=== PATIENT | female | born 1955 | race African-American/Black ===

== ENCOUNTER 2016-12-17 02:30 | Inpatient (IN) ==
--- NOTE | 2016-12-17 03:14 | Emergency Department Note ---
Ricardo Nguyen Emily, am scribing for, and in the presence of, Derrick Munoz MD 03: 04. Alexander Nguyen Charles R, MD, personally performed the services described in this documentation, ascribed by Isabel Silva in my presence, and it is both accurate and complete . Arrival - Arrival Chief Complaint: Shortness of Breath Stated Complaint: Pneumonia ED Nursing Triage Note: Patient to triage via EMS from [facility] with RLL PNA. Patient went to [facility] with c/o SOB and right flank pain. Mode of Arrival: Stretcher Limitations: No Limitations Source: Patient - History of Present Illness HPI Narrative: Pt is a 60 y/o female who was transferred from [facility] to ED with RLL PNA. Pt's originally c/o SOB and right flank pain at first facility. Pt has associated sxs of mild rhinorrhea and sore throat but denies fever. Pt had kidney transplant close to 14 years ago at [facility]. PMHx of PE in Jun 2016 but denies filter. Pt reports having low blood and had transfusion recently. She notes having graft in right arm and has had discussion of starting dialysis. Onset (ago): hour(s) Consistency: constant Severity: mild, moderate Severity scale (1-10): 4 Quality: aching, fullness Allergies/Adverse Reactions: Allergies Allergy/AdvReac Type Severity Reaction Status Date / Time codeine Allergy Mild Gastrointestinal Verified 06/27/16 08:59 Upset diphenhydramine Allergy Mild Gastrointestinal Verified 06/27/16 08:59 [From Benadryl] Upset iron Allergy Mild Gastrointestinal Verified 06/27/16 08:59 Upset Home Medications: Home Medications Medication Instructions Recorded Confirmed Type Amlodipine Besylate 10 mg PO DAILY 02/12/15 07/17/16 History Aspirin [Adult Low Dose Aspirin EC] 81 mg PO DAILY 02/12/15 07/17/16 History Tacrolimus [Tacrolimus Cap] 2 mg PO BID 02/12/15 07/17/16 History cloNIDine TAB [Catapres Tab] 0.1 mg PO TID 02/12/15 07/17/16 History hydrALAZINE TAB [Apresoline Tab] 50 mg PO TID 02/12/15 07/17/16 History Carvedilol [Coreg] 6.25 mg PO BID 03/14/16 07/17/16 History Calcitriol [Rocaltrol] 0.25 mcg PO DAILY 05/05/16 07/17/16 History Cetirizine Tab [ZyrTEC Tab] 10 mg PO DAILY 05/05/16 07/17/16 History predniSONE TAB [PredniSONE] 10 mg PO DAILY 05/05/16 07/17/16 History Sodium Bicarb Tab 1,300 mg PO BID 07/12/16 07/17/16 History Acetaminophen Tab [Tylenol Tab] 325 mg PO Q4H PRN #0 tablet 07/27/16 Rx Albuterol/Ipratropium Neb [Duoneb] 3 ml RESP TX RT Q4H PRN #0 07/27/16 Rx Clindamycin Inj [Cleocin Inj] 900 mg IV Q8H 07/27/16 Rx Docusate Sodium Cap [Colace Cap] 100 mg PO BID PRN #0 capsule 07/27/16 Rx Ferrous Gluconate [Fergon] 240 mg PO DAILY tablet 07/27/16 Rx Furosemide Tab [Lasix Tab] 40 mg PO DAILY tablet 07/27/16 Rx Glucagon 1 mg IM PRN PRN #0 vial 07/27/16 Rx Lactulose Liquid [Chronulac] 20 gm PO Q4H PRN #0 07/27/16 Rx Loperamide Cap [Imodium Cap] 2 mg PO TID PRN #0 capsule 07/27/16 Rx Mycophenolate Tab [Myfortic] 180 mg PO BID tablet 07/27/16 Rx Ondansetron Inj [Zofran Inj] 4 mg IV Q4H PRN #0 vial 07/27/16 Rx Pantoprazole Tab [Protonix Tab] 40 mg PO DAILY tablet 07/27/16 Rx Tacrolimus Cap [Prograf Cap] 1 mg PO QAM capsule 07/27/16 Rx Tacrolimus Cap [Prograf Cap] 2 mg PO BEDTIME capsule 07/27/16 Rx cefTRIAXone [Rocephin] 1,000 mg IV Q24H vial 07/27/16 Rx Review of System - Review of System 12 point system: reviewed and no additional remarkable complaints except as stated - Review of System Constitutional: Absent: fever, weakness Head/Ears/Nose/Throat: Present: nasal drainage (mild rhinonrrhea), sore throat. Absent: earache Respiratory: Present: respiratory distress. Absent: cough Cardiovascular: Absent: chest pain Gastrointestinal: Present: abdominal pain (right side). Absent: nausea, vomiting Musculoskeletal: Absent: arm pain Skin: Absent: rash Medical,Surgical,& Family Hx - Social History Smoking Status: Never smoker Frequency of Alcohol Use: None Type of Drug Use: None Functional capacity: independent ambulation Exam Vital Signs: Vital Signs Temperature 98.8 F 12/17/16 02:43 Pulse Rate 96 H 12/17/16 02:43 Respiratory Rate 20 12/17/16 02:43 Blood Pressure 131/72 12/17/16 02:43 O2 Sat by Pulse Oximetry 91 L 12/17/16 02:43 - General General appearance: alert, in no apparent distress - Head Head exam: Present: atraumatic, normocephalic - Eye Eye exam: Present: PERRL, EOMI - ENT ENT exam: Present: mucous membranes moist. Absent: mucous membranes dry - Neck Neck exam: Present: full ROM. Absent: tenderness - Chest Chest inspection: Present: symmetric chest wall rise. Absent: tenderness - Respiratory Respiratory exam: Present: wheezes (bilateral; slightly worse on right than left ). Absent: accessory muscle use, respiratory distress - Cardiovascular Cardiovascular exam: Present: tachycardia, normal heart sounds - Abdominal Exam Abdominal exam: Present: soft, normal bowel sounds, other (scars on right side) . Absent: distention, tenderness - Extremities Exam Extremities exam: Present: full ROM, other (graft on right arm). Absent: tenderness, pedal edema - Neurological Exam Neurological exam: Present: alert, oriented X3, CN II-XII intact. Absent: motor sensory deficit - Psychiatric Psychiatric exam: Present: normal affect, normal mood - Skin Skin exam: Present: warm, dry Course - Consultations Consultation #1: Hospitalist will admit patient Time: 03:13 Results - Labs Labs: All results from previous facility reviewed Disposition Clinical Impression: Renal transplant patient, Failed kidney transplant, Immunocompromise, Pneumonia , Acute dyspnea Case discussed with: patient Disposition: Still a Patient Condition: Stable Time of Disposition: 03:14
[2016-12-17] MEDS ORDERED: ONDANSETRON 4 MG/2 ML VIAL IV PRN (03:29)
[2016-12-17] MEDS ORDERED: ACETAMINOPHEN 325 MG TABLET PO PRN (03:29)
[2016-12-17] MEDS ORDERED: FUROSEMIDE 40 MG/4 ML VIAL IV STA (03:30)
--- NOTE | 2016-12-17 03:55 | Hospitalist History & Physical ---
Assessment and Plan (1) Dyspnea Status: Acute Assessment and plan: Patient with acute respiratory symptoms including dyspnea and runny nose. All this could be just due to URI. I am not sure patient has any any bacterial infection but due to patient is being on immunosuppressant medication will go ahead and start on antibiotics until cultures results I will get pro calcitonin level. The x-ray finding on the chest x-ray did not acute as it was seen in July. This could be also some associated congestive changes. Patient has end- stage renal disease and CHF with a preserved EF. She has received dose of Lasix and need to follow-up the response. Current Visit: Yes (2) Chronic kidney disease, stage V Status: Chronic Assessment and plan: Patient with a chronic transplant rejection and now has CKD stage V and maturing AV access, consult renal Current Visit: Yes (3) Pulmonary embolism Status: Chronic Assessment and plan: Patient was on Coumadin. INR is supratherapeutic will hold Coumadin and repeat INR in the morning Current Visit: Yes (4) Anemia Status: Chronic Assessment and plan: Likely due to chronic disease patient recently has received transfusions . I will check a stool Hemoccult but there is no hematochezia melena. Patient will likely need to prbc transfusion. She is not acutely symptomatic for anemia Current Visit: No Qualifiers: Anemia type: iron deficiency (5) Diabetes mellitus Status: Chronic Assessment and plan: Continue monitor blood sugar seem to be controlled due to advancing renal failure short-acting as needed insulin will be provided Current Visit: No Qualifiers: Diabetes mellitus type: type 2 Chronic kidney disease stage: stage 3 ( moderate) (6) HTN (hypertension) Status: Chronic Assessment and plan: Blood pressure is controlled Current Visit: No (7) Renal transplant recipient Status: Chronic Assessment and plan: Patient is on prednisone and CellCept. Patient was on Prograf in the past which was stopped recently. I will resume home dose of mycophenolate acid 180 mg twice daily and prednisone 10 mg daily on her current medication list. Renal to follow Current Visit: No History of Present Illness Chief complaint: Shortness of breath History of present illness: Ms. Bob is a 61 year old female with history of hypertension diabetes mellitus pulmonary embolism CKD with a history of renal transplant about 14 years ago now has chronic rejection. Patient came with a transfer from [facility] where she presented with the shortness of breath she has shortness of breath started a few hours prior to ER visit along with a cough with clear sputum and runny nose and no fever she was noted to have abnormal chest x-ray with suspected right lower lobe pneumonia. There is no nausea vomiting diarrhea urinary symptoms abdominal pain reported on further inquiry it was noted that patient was admitted here in July 2016 with the suspected pneumonia and was treated with antibiotics. Later on she had a visit at the [facility] and dear she was noted to have a pulmonary embolism and started on Coumadin. Her WBC count was 5.9 hemoglobin 7.0 hematocrit 21.8 and platelet 237 d-dimer 327 PT 41.0 INR 3.73 BUN 19 creatinine 7.2 proBNP [id number]. EKG was sinus rhythm without any gross ST-T changes troponin level that is not available but the CPK was 109. She also had blood cultures performed at the [facility] and given dose of Rocephin. For failing transplant she has right upper arm AV access placed and is waiting for maturation. In the ER here patient was seen by Dr. Munoz and presented to me for admission. She has received a dose of 80 mg Lasix at our ER Home Medications Medication Instructions Recorded Confirmed Type Amlodipine Besylate 10 mg PO DAILY 02/12/15 07/17/16 History Aspirin [Adult Low Dose Aspirin EC] 81 mg PO DAILY 02/12/15 07/17/16 History Tacrolimus [Tacrolimus Cap] 2 mg PO BID 02/12/15 07/17/16 History cloNIDine TAB [Catapres Tab] 0.1 mg PO TID 02/12/15 07/17/16 History hydrALAZINE TAB [Apresoline Tab] 50 mg PO TID 02/12/15 07/17/16 History Carvedilol [Coreg] 6.25 mg PO BID 03/14/16 07/17/16 History Calcitriol [Rocaltrol] 0.25 mcg PO DAILY 05/05/16 07/17/16 History Cetirizine Tab [ZyrTEC Tab] 10 mg PO DAILY 05/05/16 07/17/16 History predniSONE TAB [PredniSONE] 10 mg PO DAILY 05/05/16 07/17/16 History Sodium Bicarb Tab 1,300 mg PO BID 07/12/16 07/17/16 History Acetaminophen Tab [Tylenol Tab] 325 mg PO Q4H PRN #0 tablet 07/27/16 Rx Albuterol/Ipratropium Neb [Duoneb] 3 ml RESP TX RT Q4H PRN #0 07/27/16 Rx Clindamycin Inj [Cleocin Inj] 900 mg IV Q8H 07/27/16 Rx Docusate Sodium Cap [Colace Cap] 100 mg PO BID PRN #0 capsule 07/27/16 Rx Ferrous Gluconate [Fergon] 240 mg PO DAILY tablet 07/27/16 Rx Furosemide Tab [Lasix Tab] 40 mg PO DAILY tablet 07/27/16 Rx Glucagon 1 mg IM PRN PRN #0 vial 07/27/16 Rx Lactulose Liquid [Chronulac] 20 gm PO Q4H PRN #0 07/27/16 Rx Loperamide Cap [Imodium Cap] 2 mg PO TID PRN #0 capsule 07/27/16 Rx Mycophenolate Tab [Myfortic] 180 mg PO BID tablet 07/27/16 Rx Ondansetron Inj [Zofran Inj] 4 mg IV Q4H PRN #0 vial 07/27/16 Rx Pantoprazole Tab [Protonix Tab] 40 mg PO DAILY tablet 07/27/16 Rx Tacrolimus Cap [Prograf Cap] 1 mg PO QAM capsule 07/27/16 Rx Tacrolimus Cap [Prograf Cap] 2 mg PO BEDTIME capsule 07/27/16 Rx cefTRIAXone [Rocephin] 1,000 mg IV Q24H vial 07/27/16 Rx Allergies Allergy/AdvReac Type Severity Reaction Status Date / Time codeine Allergy Mild Gastrointestinal Verified 06/27/16 08:59 Upset diphenhydramine Allergy Mild Gastrointestinal Verified 06/27/16 08:59 [From Benadryl] Upset iron Allergy Mild Gastrointestinal Verified 06/27/16 08:59 Upset Medical,Surgical,& Family Hx - Medical History Cardio: History of: Cardiac Dysrhythmia, Hypertension, Cardiovascular Problems Neurology: No history of: Seizures Endocrine: History of: Diabetes Mellitus (IDDM) (insulin pump continous 2.75 humalog.), Diabetes Mellitus (NIDDM) Renal: History of: Renal Failure, Renal Problems (KIDNEY TRANSPLANT 09/2002) Comment Only: Dialysis (past dialysis) Genitourinary: History of: Kidney Stones Gastrointestinal: History of: GERD, GI Problems (peptic ulcers) Hematology: History of: Anemia - Surgical History Thoracic Surgeries: Surgical HX of;: Kidney (Renal Surgery) (transplant 2002) HEENT Surgeries: Surgical HX of: Thyroid Surgery (partial thyroidectomy) Abdominal Surgeries: Surgical HX of: Colonoscopy (2014) Reproductive Surgeries: Surgical HX of;: Breast Surgery (lt breast cyst removed) , Hysterectomy (partial) - Family History Family History: Reports;: Family Cancer (2 sisters with CA, brother with ESRD), Family Heart Disease, Family Hypertension Denies;: Family Anesthesia Reaction, Family Diabetes, Family Psychiatric Problems, Family Stroke - Social History Smoking Status: Never smoker Frequency of Alcohol Use: None Type of Drug Use: None 12 point system: reviewed and no additional remarkable complaints except as stated (Mentioned in HPI) Exam - Constitutional Vitals: Period Temp Pulse Resp BP Sys/Buchanan Pulse Ox Last 24 Hr 98.8 F 96 20 131/72 91 General appearance: no acute distress - Head Head exam: Present: normal inspection, normocephalic, atraumatic - Eye Eye exam: Present: EOMI. Absent: conjunctival injection Pupils: Present: ANKUR, normal accommodation - Neck Neck exam: Present: normal inspection. Absent: other - Respiratory Respiratory exam: Present: rales (Decreased air entry on right-sided posteriorly on auscultation with BILATERALLY at the bases but more on the right side). Absent: accessory muscle use - Cardiovascular Cardiovascular exam: Present: regular rate and rhythm. Absent: bradycardia, tachycardia - GI/Abdominal GI/Abdominal exam: Present: normal bowel sounds, soft. Absent: distended, tenderness - Extremities Exam Extremities exam: Present: normal inspection, other (Right upper extremity AV access with thrill). Absent: edema - Back Exam Back exam: Present: normal inspection - Neurological Exam Neurological exam: Present: alert, oriented X3 - Psychiatric Psychiatric exam: Present: normal affect, normal mood Quality Measures - VTE Contraindication to Pharmacological VTE Prophylaxis: Already on Theraputic Agent , No Prophylaxis Needed
[2016-12-17] MEDS ORDERED: FUROSEMIDE 40 MG/4 ML VIAL ONE (04:01)
[2016-12-17] MEDS ORDERED: DEXTROSE 50% 25 GM/50 ML SYRINGE IV PRN (04:08)
[2016-12-17] MEDS ORDERED: GLUCAGON 1 MG VIAL IM PRN (04:08)
[2016-12-17] MEDS ORDERED: SODIUM CHLORIDE 0.9% 250 ML IV PRN (04:29)
[2016-12-17] MEDS ORDERED: FUROSEMIDE 100 MG/10 ML VIAL IV ONE (04:34)
[2016-12-17] MEDS: cefTRIAXone 1,000 MG in SODIUM CHLORIDE 0.9% 100 ML IV SCH (06:18)
[2016-12-17] MEDS: AZITHROMYCIN INJ 500 MG in SODIUM CHLORIDE 0.9% 250 ML IV SCH (06:39)
[2016-12-17 07:21] LABS: Alanine Aminotransferase 17 U/L (13-56); Albumin 3.7 G/DL (3.4-5.0); Alkaline Phosphatase 135 U/L (45-117); Aspartate Amino Transferase 14 U/L (0-37); Bilirubin,Total < 0.39 MG/DL (0.2-1.0); Blood Urea Nitrogen 98 MG/DL (7-18); Calcium 6.2 MG/DL (8.5-10.1); Glucose 113 MG/DL (74-106); Osmolality,Calculated 310.4 MOS/KG (273-304); Potassium 4.1 MMOL/L (3.5-5.1); Sodium 140 MMOL/L (136-145); Total Protein 6.6 G/DL (6.4-8.3)
[2016-12-17 07:32] LABS: Folate 17.9 NG/ML (5.4-24.0); Vitamin B12 171 PG/ML (211-911)
[2016-12-17] MEDS: INSULIN LISPRO 100 UNIT/ML SUBCUT SCH ×4 (07:33→22:05)
[2016-12-17 07:39] LABS: Basophils % 0.2 % (0.0-0.8); Hematocrit 20.8 VOL% (35.7-47.0); Immature Granulocytes % 1.1 %; Immature Granulocytes Absolute 0.06 #; Lymphocytes # 0.4 10*3/uL (1.4-4.0); Lymphocytes % 6.7 % (21.3-54.2); Mean Corpuscular HGB Conc 32.2 GM/DL (32-36); Mean Corpuscular Hemoglobin 24 PG (27-34); Monocytes # 0.4 10*3/uL (0.11-0.8); Monocytes % 7.5 % (1.7-12.7); Neutrophils # 4.6 10*3/uL (1.4-7.4); Neutrophils % 84.5 % (38.7-73.9); Platelet Count 171 T/CUMM (130-400); Red Blood Count 2.81 MC/CUMM (3.8-5.5); Red Cell Distribution Width 14.3 % (9.3-17.3); White Blood Count 5.5 T/CUMM (4-12)
[2016-12-17 07:44] LABS: Hemoglobin 6.7 GM/DL (12.0-16.0)
[2016-12-17 07:52] LABS: INR 3.1
[2016-12-17 08:02] LABS: PT Patient Result 35.5 SECS; Partial Thromboplastin Time 65.1 SECS (0-40)
[2016-12-17 08:32] LABS: Hypochromasia 1+; Lymphocytes 11 % (20-55); Microcytosis 1+; Ovalocytes Slight; Platelet Estimate Normal; Segmented Neutrophils 81 % (50-85); Total Cells Counted 100
[2016-12-17 08:52] LABS: Sedimentation Rate-Westergren 42 MM/HR (0-30)
[2016-12-17] MEDS: PANTOPRAZOLE 40 MG TABLET PO SCH (09:12)
[2016-12-17] MEDS: amLODIPine 10 MG TABLET PO SCH (09:12)
[2016-12-17] MEDS: CARVEDILOL 12.5 MG TABLET PO SCH ×2 (09:12→21:51)
[2016-12-17] MEDS: predniSONE 10 MG TABLET PO SCH (09:12)
[2016-12-17] MEDS: CALCITRIOL 0.25 MCG CAPSULE PO SCH (09:13)
[2016-12-17] MEDS: MYCOPHENOLATE 180 MG TABLET PO SCH ×2 (09:17→21:51)
--- NOTE | 2016-12-17 10:31 | Ultrasound Report ---
US venous doppler UE RT Indication: Right upper extremity swelling and pain. Breast hemodialysis graft. Comparison: None. Technique: Using a transcutaneous probe, grayscale, color Doppler, and spectral Doppler images of the right upper extremity venous structures were captured and stored. Images both with compression and no compression were obtained where possible. The right internal jugular vein and subclavian vein were additionally interrogated. Findings: There is no evidence of venous thrombus within the interrogated right upper extremity or neck. The interrogated venous segments demonstrate compression, color flow, and phasic spectral flow. The hemodialysis graft is patent. Impression: 1. No evidence of deep venous thrombosis within the right upper extremity. 12/17/2016 10:29 AM PROCEDURE INTERPRETED AT [facility] DEPARTMENT OF RADIOLOGY Final Report Signed by: Dr. Derrell Peter
--- NOTE | 2016-12-17 14:00 | Nephrology Consult Note ---
History of Present Illness Chief complaint: CRF History of present illness: Ms. Bob is a 61 year old female with advanced chronic renal failure. She has chronic rejection of a transplant she received in 2002. She has had a right arm access placed for anticipated dialysis. She presented with shortness of breath which is primarily ABDALLA. She denies chest pain. She has had a nonproductive cough. Chest x-ray done at [facility] showed right lower lobe infiltrate. Home Medications Medication Instructions Recorded Confirmed Type Amlodipine Besylate 10 mg PO DAILY 02/12/15 12/17/16 History Carvedilol [Coreg] 25 mg PO BID 03/14/16 12/17/16 History Calcitriol [Rocaltrol] 0.25 mcg PO DAILY 05/05/16 12/17/16 History Cetirizine Tab [ZyrTEC Tab] 10 mg PO DAILY 05/05/16 12/17/16 History predniSONE TAB [PredniSONE] 10 mg PO DAILY 05/05/16 12/17/16 History Sodium Bicarb Tab 1,300 mg PO BID 07/12/16 12/17/16 History Acetaminophen Tab [Tylenol Tab] 325 mg PO Q4H PRN #0 tablet 07/27/16 12/17/16 Rx Docusate Sodium Cap [Colace Cap] 100 mg PO BID PRN #0 capsule 07/27/16 12/17/16 Rx Lactulose Liquid [Chronulac] 20 gm PO Q4H PRN #0 07/27/16 12/17/16 Rx Loperamide Cap [Imodium Cap] 2 mg PO TID PRN #0 capsule 07/27/16 12/17/16 Rx Mycophenolate Tab [Myfortic] 180 mg PO BID tablet 07/27/16 12/17/16 Rx Pantoprazole Tab [Protonix Tab] 40 mg PO DAILY tablet 07/27/16 12/17/16 Rx Furosemide Tab [Lasix Tab] 40 mg PO BID 12/17/16 12/17/16 History HYDROcodone/ACETAMIN 7.5-325 1 tablet PO Q4H PRN 12/17/16 12/17/16 History [Lyons 7.5-325] Ranitidine Tab [Zantac Tab] 150 mg PO DAILY 12/17/16 12/17/16 History Warfarin [Coumadin] 5 mg PO DAILY 12/17/16 12/17/16 History hydrALAZINE TAB [Apresoline Tab] 50 mg PO TID 12/17/16 12/17/16 History Allergies Allergy/AdvReac Type Severity Reaction Status Date / Time codeine Allergy Mild Gastrointestinal Verified 06/27/16 08:59 Upset diphenhydramine Allergy Mild Gastrointestinal Verified 06/27/16 08:59 [From Benadryl] Upset iron Allergy Mild Gastrointestinal Verified 06/27/16 08:59 Upset Medical,Surgical,& Family Hx - Medical History Cardio: History of: Cardiac Dysrhythmia, Hypertension, Cardiovascular Problems Neurology: No history of: Seizures Endocrine: History of: Diabetes Mellitus (IDDM) (insulin pump continous 2.75 humalog.), Diabetes Mellitus (NIDDM) Respiratory: History of: Respiratory Problems (flu vac- yes; pneu vac- yes) Renal: History of: Renal Failure, Renal Problems (KIDNEY TRANSPLANT 09/2002) Comment Only: Dialysis (past dialysis) Genitourinary: History of: Kidney Stones Gastrointestinal: History of: GERD, GI Problems (peptic ulcers) Hematology: History of: Anemia - Surgical History Thoracic Surgeries: Surgical HX of;: Kidney (Renal Surgery) (transplant 2002) HEENT Surgeries: Surgical HX of: Thyroid Surgery (partial thyroidectomy) Abdominal Surgeries: Surgical HX of: Colonoscopy (2014) Reproductive Surgeries: Surgical HX of;: Breast Surgery (lt breast cyst removed) , Hysterectomy (partial) - Family History Family History: Reports;: Family Cancer (2 sisters with CA, brother with ESRD), Family Heart Disease, Family Hypertension Denies;: Family Anesthesia Reaction, Family Diabetes, Family Psychiatric Problems, Family Stroke - Social History Smoking Status: Never smoker Frequency of Alcohol Use: None Type of Drug Use: None Review of Systems 12 point system: reviewed and no additional remarkable complaints except as stated Exam - Vital Signs Vital signs: Period Temp Pulse Resp BP Sys/Buchanan Pulse Ox Last 24 Hr 97.1 F-98.8 F 88-96 17-20 104-131/57-72 91-100 Exam: Gen.: Alert and oriented x3. ENT: Pupils equal round reactive to light. EOMs intact. Mucous membranes moist. Neck: Supple. No JVD or bruit. Cardiovascular: Regular rate and rhythm. No murmur rub or gallop Lungs: Clear left. Decreased breath sounds right base Abdomen: Soft. Nontender. Positive bowel sounds. No organomegaly Extremities: No edema Results - Labs CBC & BMP: 12/17/16 07:18 12/17/16 06:26 Assessment and Plan (1) Kidney transplant failure Status: Acute Assessment and plan: 61-year-old woman with: * Pneumonia. Right lower lobe. Empiric antibiotics started * Renal transplant. Chronic rejection * CRF stage V * Anemia. She is to be transfused * Diabetes mellitus Current Visit: Yes (2) Dyspnea Status: Acute Current Visit: Yes (3) Pneumonia Status: Acute Current Visit: Yes (4) Chronic kidney disease, stage V Status: Chronic Current Visit: Yes (5) Anemia Status: Chronic Current Visit: No Qualifiers: Anemia type: iron deficiency
[2016-12-17 18:56] LABS: Hematocrit 26.7 VOL% (35.7-47.0)
[2016-12-18] MEDS: cefTRIAXone 1,000 MG in SODIUM CHLORIDE 0.9% 100 ML IV SCH (04:01)
[2016-12-18] MEDS: AZITHROMYCIN INJ 500 MG in SODIUM CHLORIDE 0.9% 250 ML IV SCH (05:03)
[2016-12-18] MEDS: INSULIN LISPRO 100 UNIT/ML SUBCUT SCH ×4 (09:02→21:24)
[2016-12-18] MEDS: amLODIPine 10 MG TABLET PO SCH (09:18)
[2016-12-18] MEDS: predniSONE 10 MG TABLET PO SCH (09:19)
[2016-12-18] MEDS: CARVEDILOL 12.5 MG TABLET PO SCH ×2 (09:19→21:24)
[2016-12-18] MEDS: CALCITRIOL 0.25 MCG CAPSULE PO SCH (09:19)
[2016-12-18] MEDS: MYCOPHENOLATE 180 MG TABLET PO SCH ×2 (09:19→21:24)
[2016-12-18] MEDS: PANTOPRAZOLE 40 MG TABLET PO SCH (09:19)
[2016-12-18 09:21] LABS: Hemoglobin A1 (Alkaline) 97.7 % (96.5-98.5); Hemoglobin A2 (Alkaline) 2.3 % (1.5-3.5)
--- NOTE | 2016-12-18 09:23 | Hospitalist Progress Note ---
Assessment and Plan (1) Dyspnea Status: Acute Assessment and plan: This is slowly improving . This is most likely multifactorial- CHF vs PE vs CKD vs pneumonia. Chest x-ray done at [facility] showed right lower lobe infiltrate. Plan Will give another doses of Lasix Continue with IV antibiotics Echo cardiac enzymes Continue with anticoagulation Follow Nephrology's recommendations Repeat CXR Nebs treatment BNP Current Visit: Yes (2) Chronic kidney disease, stage V Status: Chronic Assessment and plan: Patient with a chronic transplant rejection and now has CKD stage V and maturing AV access. Nephrology is following. Current Visit: Yes (3) Pulmonary embolism Status: Chronic Assessment and plan: continue anticogulation INR monitoring Doppler of the legs Current Visit: Yes (4) Anemia Status: Chronic Assessment and plan: continue to follow. This is most likely due to underlying CKD Current Visit: No Qualifiers: Anemia type: iron deficiency (5) Renal transplant recipient Status: Chronic Assessment and plan: continue with Cellcept and Prednisone Will get Cellcept level Current Visit: No (6) Diabetes mellitus Status: Chronic Assessment and plan: stable on current regime, will get hbA1c level Current Visit: No Qualifiers: Diabetes mellitus type: type 2 Chronic kidney disease stage: stage 3 ( moderate) (7) HTN (hypertension) Status: Chronic Assessment and plan: stable on meds. Current Visit: No (8) Pneumonia Status: Acute Assessment and plan: on IV antibiotics Follow cultures Repeat CXR Current Visit: Yes Hospitalist: Subjective Interval history: Patient seen siting up on a chair comfortably on [place] oxygen. Doppler USS of her right arm was negative for DVT. Exam - Constitutional Vitals: Period Temp Pulse Resp BP Sys/Buchanan Pulse Ox Last 24 Hr 97.1 F-98.4 F 66-97 18-24 104-156/58-73 92-100 General appearance: no acute distress, other (sitting up on [place] oxygen) - Head Head exam: Present: normal inspection - Respiratory Respiratory exam: Present: decreased breath sounds - Cardiovascular Cardiovascular exam: Present: regular rate and rhythm - GI/Abdominal GI/Abdominal exam: Present: normal bowel sounds - Extremities Exam Extremities exam: Present: other (right arm and breast swelling) - Neurological Exam Neurological exam: Present: alert, oriented X3 Results - Labs CBC & BMP: 12/17/16 18:50 12/17/16 06:26 Lab Results: I have reviewed the past 24 hour labs Quality Measures - VTE Contraindication to Pharmacological VTE Prophylaxis: Already on Theraputic Agent , No Prophylaxis Needed - Stroke Symptom Onset Unknown: No
[2016-12-18] MEDS ORDERED: ALBUTEROL/IPRATROPIUM 3 ML NEB RESP TX PRN (09:29)
[2016-12-18 10:42] LABS: Troponin I Only < 0.015 NG/ML (0.00-0.045)
--- NOTE | 2016-12-18 10:54 | Nephrology Progress Note ---
Nephrology - PN: Subj Interval history: Ms. Bob is seen in follow-up of her renal failure. She has a failing kidney transplant and the creatinine is now 6.9. She went to the [facility] emergency room because of shortness of breath mostly with exertion. She was found to have a hematocrit of 20.8% and has been transfused with a hematocrit now 26.7%. She says she feels better. There is also report of an infiltrate on chest x-ray but we do not have chest x-ray available from the referring hospital. One has been ordered for today. 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 She underwent intervention for this about 1 month ago with some improvement in swelling but did his never improved beyond its current level. On exam her chest reveals decreased breath sounds on in the right chest and clear left lung. She has no edema of the legs but does have edema of the right arm and right breast. There is a patent dialysis access the right upper arm. Impression #1 anemia due to chronic disease #2 failing kidney transplant with stage V chronic kidney disease and a creatinine of 6.9. 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 This is causing swelling of her right breast as well. Plan: Chest x-ray #2 we will asked to see her regarding access issues. I do not think she is in need of dialysis immediately. Vascular access is going to be a problem and from the previous interventional radiology report stenting of the central venous stenosis is going to be a last resort. Exam (PN)-Nephrology - Vital Signs Vital signs: Period Temp Pulse Resp BP Sys/Buchanan Pulse Ox Last 24 Hr 97.1 F-98.4 F 66-97 18-24 104-156/58-73 92-100 - Lab 12/17/16 18:50 12/17/16 06:26 Most recent lab results Calcium 6.2 MG/DL (8.5-10.1) L 12/17/16 06:26
--- NOTE | 2016-12-18 13:32 | Ultrasound Report ---
History: Dyspnea Date: 12/18/2016 Study: Bilateral lower extremity color-flow venous top study Comparison exam: No previous similar study currently available Color Doppler, wave form analysis, and compression analysis of the deep veins of both lower extremities from the common femoral vein level through the popliteal vein level shows that the veins are readily compressible. There is no abnormal intraluminal material to suggest thrombus. Waveform analysis is unremarkable. Ultrasound images were captured and archived Impression: Normal bilateral lower extremity color flow venous Doppler study. No evidence of acute DVT PROCEDURE INTERPRETED AT [facility] DEPARTMENT OF RADIOLOGY Final Report Signed by: Dr. Dianne Alvarado
--- NOTE | 2016-12-18 14:02 | XRay Report ---
XR chest 2V Indication: SOB Comparison: Chest x-ray dated December 16, 2016 Technique: Frontal and lateral views of the chest. Findings: Continued moderate cardiomegaly. Mildly improved bilateral infrahilar consolidation with some residual remaining. Continued small bilateral pleural effusions, right greater than left. Visualized osseous and surrounding soft tissue structures appear grossly unchanged.. IMPRESSION: As above. PROCEDURE INTERPRETED AT [facility] DEPARTMENT OF RADIOLOGY Final Report Signed by: Dr Fidel Marcano
--- NOTE | 2016-12-18 14:51 | General Surgery Consult Note ---
Assessment and Plan - Time spent with patient Time spent with patient: Greater than 30 minutes (1) Acute on chronic renal failure Status: Chronic Assessment and plan: 61-year-old -[place] female with acute on chronic renal failure and failed kidney transplant admitted with pneumonia. Patient has chronic swelling of the right arm and breast due to a central venous stenosis draining the right upper arm AV graft. Patient had undergone intervention by Dr. Peterson a few weeks ago with some improvement in the swelling. Dr. Garrett has been consulted to evaluate her access. Patient continues to have some chronic swelling of the right arm and breast with good distal pulses, good thrill and bruit, and normal sensation in her hand and fingers. Dr. Garrett will see and examined patient and further recommendations to follow. Current Visit: No (2) Renal transplant recipient Status: Chronic Current Visit: No (3) Anemia Status: Chronic Current Visit: No Qualifiers: Anemia type: iron deficiency (4) HTN (hypertension) Status: Chronic Current Visit: No (5) CKD (chronic kidney disease) stage 4, GFR 15-29 ml/min Status: Chronic Current Visit: No (6) Arm swelling Status: Acute Current Visit: No (7) Right lower lobe pneumonia Status: Acute Current Visit: No History of Present Illness Chief complaint: Right arm swelling History of present illness: Ms. Bob is a 61 year old -[place] female with history of failed renal transplant with chronic kidney disease, hypertension, diabetes, and pulmonary embolism on Coumadin admitted by the hospitalist on 12/17/2016 with shortness of breath due to pneumonia. She also was found to have an hematocrit of 20.8% has been transfused. She has chronic swelling of the right arm and breast due to central venous stenosis draining the right upper arm AV graft. Dr. Garrett placed a right upper arm loop graft between the brachial artery and the basilic vein on 06/27/2016. Patient has had some right upper extremity swelling since then but it is stable and Dr. Garrett recommended elevation of the right arm. Dr. Peterson saw the patient on 11/27/2016 where he performed a right upper extremity AV fistulogram. He found that the graft was widely patent. He performed isolation of the intended axillary outflow vein from a large and well-developed collateral outflow vein at the venous anastomosis using a stent graft. 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 Patient is not in need of dialysis immediately per Dr. Parr. He is requested Dr. Garrett to look at the graft and discuss access options. Upon exam patient is resting comfortably in bed and her only complaints are of right upper extremity and right breast swelling. Her incisions have healed well and patient does have a thrill and a bruit in that graft. She does have what appears to be chronic edema of the right upper extremity and her lateral right breast. She does have good distal pulses and normal sensation in her hand and fingers. Home Medications Medication Instructions Recorded Confirmed Type Amlodipine Besylate 10 mg PO DAILY 02/12/15 12/17/16 History Carvedilol [Coreg] 25 mg PO BID 03/14/16 12/17/16 History Calcitriol [Rocaltrol] 0.25 mcg PO DAILY 05/05/16 12/17/16 History Cetirizine Tab [ZyrTEC Tab] 10 mg PO DAILY 05/05/16 12/17/16 History predniSONE TAB [PredniSONE] 10 mg PO DAILY 05/05/16 12/17/16 History Sodium Bicarb Tab 1,300 mg PO BID 07/12/16 12/17/16 History Acetaminophen Tab [Tylenol Tab] 325 mg PO Q4H PRN #0 tablet 07/27/16 12/17/16 Rx Docusate Sodium Cap [Colace Cap] 100 mg PO BID PRN #0 capsule 07/27/16 12/17/16 Rx Lactulose Liquid [Chronulac] 20 gm PO Q4H PRN #0 07/27/16 12/17/16 Rx Loperamide Cap [Imodium Cap] 2 mg PO TID PRN #0 capsule 07/27/16 12/17/16 Rx Mycophenolate Tab [Myfortic] 180 mg PO BID tablet 07/27/16 12/17/16 Rx Pantoprazole Tab [Protonix Tab] 40 mg PO DAILY tablet 07/27/16 12/17/16 Rx Furosemide Tab [Lasix Tab] 40 mg PO BID 12/17/16 12/17/16 History HYDROcodone/ACETAMIN 7.5-325 1 tablet PO Q4H PRN 12/17/16 12/17/16 History [Koppel 7.5-325] Ranitidine Tab [Zantac Tab] 150 mg PO DAILY 12/17/16 12/17/16 History Warfarin [Coumadin] 5 mg PO DAILY 12/17/16 12/17/16 History hydrALAZINE TAB [Apresoline Tab] 50 mg PO TID 12/17/16 12/17/16 History Allergies Allergy/AdvReac Type Severity Reaction Status Date / Time codeine Allergy Mild Gastrointestinal Verified 06/27/16 08:59 Upset diphenhydramine Allergy Mild Gastrointestinal Verified 06/27/16 08:59 [From Benadryl] Upset iron Allergy Mild Gastrointestinal Verified 06/27/16 08:59 Upset Medical,Surgical,& Family Hx - Medical History Cardio: History of: Cardiac Dysrhythmia, Hypertension, Cardiovascular Problems Neurology: No history of: Seizures Endocrine: History of: Diabetes Mellitus (IDDM) (insulin pump continous 2.75 humalog.), Diabetes Mellitus (NIDDM) Respiratory: History of: Respiratory Problems (flu vac- yes; pneu vac- yes) Renal: History of: Renal Failure, Renal Problems (KIDNEY TRANSPLANT 09/2002) Comment Only: Dialysis (past dialysis) Genitourinary: History of: Kidney Stones Gastrointestinal: History of: GERD, GI Problems (peptic ulcers) Hematology: History of: Anemia - Surgical History Thoracic Surgeries: Surgical HX of;: Kidney (Renal Surgery) (transplant 2002) HEENT Surgeries: Surgical HX of: Thyroid Surgery (partial thyroidectomy) Abdominal Surgeries: Surgical HX of: Colonoscopy (2014) Reproductive Surgeries: Surgical HX of;: Breast Surgery (lt breast cyst removed) , Hysterectomy (partial) - Family History Family History: Reports;: Family Cancer (2 sisters with CA, brother with ESRD), Family Heart Disease, Family Hypertension Denies;: Family Anesthesia Reaction, Family Diabetes, Family Psychiatric Problems, Family Stroke - Social History Smoking Status: Never smoker Frequency of Alcohol Use: None Type of Drug Use: None - Constitutional Constitutional: Present: as per HPI Exam - Constitutional Vitals: Period Temp Pulse Resp BP Sys/Buchanan Pulse Ox Last 24 Hr 97.1 F-98.4 F 66-97 18-24 102-156/58-73 91-100 Exam: 61-year-old -[place] female, no acute distress, alert and oriented Chest clear CV regular rate and rhythm Abdomen soft and nontender Extremities right upper extremity with some chronic edema with AV graft with good thrill and bruit, good distal pulses, normal sensation Quality Measures - VTE Contraindication to Pharmacological VTE Prophylaxis: Already on Theraputic Agent , No Prophylaxis Needed - Stroke Symptom Onset Unknown: No Results - Labs CBC & BMP: 12/17/16 18:50 12/17/16 06:26 Lab Results: I have reviewed the past 24 hour labs
--- NOTE | 2016-12-18 16:20 | Mammography Report ---
History: Right breast swelling Bilateral full-field digital screening mammogram with CAD Date:12/18/2016 12:00 AM Comparison: Reported outside mammograms are not available for comparison Full-field digital screening bilateral mammography is performed. CAD is utilized. The breasts are imaged in the CC and MLO projections. The breast tissue is heterogeneously dense. There is no discrete mass or malignant appearing calcification. There is no axillary lymphadenopathy. There is some diffuse edema throughout the right breast in this patient with a right upper extremity dialysis AV graft with associated collateral veins seen on recent vascular studies. Impression: Benign findings. Diffuse edema of the right breast which can be attributed to the patient's AV dialysis graft issues. No convincing evidence to suggest malignancy. When the patient's outside mammograms are available for comparison, we will be happy to compare those exams to this study and dictate an addendum. Patient information is entered into a reminder system with target due date for the next mammogram BI-RADS category: Benign findings. BI-RADS 2 PROCEDURE INTERPRETED AT [facility] DEPARTMENT OF RADIOLOGY Final Report Signed by: Dr. Dianne Alvarado
[2016-12-18] MEDS: FUROSEMIDE 40 MG/4 ML VIAL IV SCH (17:05)
[2016-12-19 05:04] LABS: Basophils % 0.3 % (0.0-0.8); Eosinophils % 0.1 % (0.00-10.9); Hematocrit 24.8 VOL% (35.7-47.0); Immature Granulocytes Absolute 0.07 #; Lymphocytes # 0.4 10*3/uL (1.4-4.0); Lymphocytes % 6.1 % (21.3-54.2); Mean Corpuscular HGB Conc 32.3 GM/DL (32-36); Mean Corpuscular Hemoglobin 25 PG (27-34); Monocytes # 0.4 10*3/uL (0.11-0.8); Monocytes % 6.4 % (1.7-12.7); Neutrophils # 5.9 10*3/uL (1.4-7.4); Neutrophils % 86.1 % (38.7-73.9); Platelet Count 178 T/CUMM (130-400); Red Blood Count 3.22 MC/CUMM (3.8-5.5); Red Cell Distribution Width 15.8 % (9.3-17.3); White Blood Count 6.8 T/CUMM (4-12)
[2016-12-19 05:08] LABS: INR 2.2
[2016-12-19 05:18] LABS: Calcium 6.3 MG/DL (8.5-10.1); Magnesium 1.9 MG/DL (1.8-2.4); Potassium 4.5 MMOL/L (3.5-5.1)
[2016-12-19] MEDS: cefTRIAXone 1,000 MG in SODIUM CHLORIDE 0.9% 100 ML IV SCH (05:28)
[2016-12-19 05:35] LABS: PT Patient Result 24.8 SECS
[2016-12-19] MEDS: AZITHROMYCIN INJ 500 MG in SODIUM CHLORIDE 0.9% 250 ML IV SCH (06:20)
--- NOTE | 2016-12-19 07:01 | ECHO Report ---
Stefanie Bob 12/18/2016 Exam Date: 13:44 Referring Physician: kathrin Bob Technologist: MORENA ANGUIANO Age: 61 Ht (in): 61 Wt (lb): 124 FExam Location: [facility] Gender: Echo [id number]: Dyspnea, unspecified, Chronic kidneyIndications:disease, stage 4 (severe), Essential (primary) hypertension, Anemia BP: 156 / 71 HR: 88 SinusRhythm: FairTechnical Quality: IMPRESSIONS Normal LV systolic function, ejection fraction 65%. Grade 2/4 diastolic dysfunction. Mild to moderate left atrial enlargement. Moderate to severe mitral regurgitation. Moderate to severe tricuspid regurgitation. Mild pulmonary hypertension, pulmonary artery pressure estimated at 54 mmHg. MEASUREMENTS (Male / Female) Normal Values 2D ECHO LV Diastolic Diameter PLAX 4.6 cm 4.2 - 5.9 / 3.9 - 5.3 cm LV Systolic Diameter PLAX 2.1 cm LV Fractional Shortening PLAX 54.8 % IVS Diastolic Thickness 0.8 cm 0.6 - 1.0 / 0.6 - 0.9 cm LVPW Diastolic Thickness 0.9 cm 0.6 - 1.0 / 0.6 - 0.9 cm RV Internal Dim ED PLAX 2.9 cm Aortic Root Diameter 2.8 cm LA Systolic Diameter LX 4.3 cm 3.0 - 4.0 / 2.7 - 3.8 cm DOPPLER TR Peak Velocity 330.0 cm/s TR Peak Gradient 43.6 mmHg FINDINGS Left Ventricle Normal left ventricular cavity size. Mild left ventricular hypertrophy. Left ventricular ejection fraction is estimated at 65 %. Right Ventricle The right ventricle is normal in size and function. Right Atrium The right atrium is normal in size. Left Atrium The left atrium is mildly to moderately enlarged. Mitral Valve Mildly thickened mitral valve. Mild mitral annular calcification. Moderate to severe mitral valve regurgitation. Aortic Valve Aortic valve sclerosis without stenosis or regurgitation. Tricuspid Valve Morphologically normal tricuspid valve. [id number] tricuspid valve regurgitation. Tricuspid regurgitation velocities suggest a PAP of 54 mmHg. Pulmonic Valve Morphologically normal pulmonic valve without significant stenosis. There is no pulmonic regurgitation. Pericardium Normal pericardium without effusion. Aorta Normal ascending aorta dimension. Ludy Butler MD (Electronically Signed) 19 December 2016 Final Date: 07:00
[2016-12-19] MEDS: FUROSEMIDE 40 MG/4 ML VIAL IV SCH ×2 (08:09→15:45)
[2016-12-19] MEDS: CALCITRIOL 0.25 MCG CAPSULE PO SCH (08:10)
[2016-12-19] MEDS: MYCOPHENOLATE 180 MG TABLET PO SCH ×2 (08:10→20:24)
[2016-12-19] MEDS: predniSONE 10 MG TABLET PO SCH (08:10)
[2016-12-19] MEDS: amLODIPine 10 MG TABLET PO SCH (08:10)
[2016-12-19] MEDS: CARVEDILOL 12.5 MG TABLET PO SCH ×2 (08:10→20:24)
[2016-12-19] MEDS: PANTOPRAZOLE 40 MG TABLET PO SCH (08:10)
[2016-12-19] MEDS: INSULIN LISPRO 100 UNIT/ML SUBCUT SCH ×3 (08:11→20:24)
--- NOTE | 2016-12-19 08:45 | Physician Query Form ---
CLICK EDIT DOCUMENT TO SELECT QUERY ANSWER --> OK --> SIGN Marie Peter RN, CCDS Certified Clinical Mortgage Loan Officer Originator W) [phone] (f) [phone] [email or web address] PROVIDERS: Make your selection(s) from the choices in EACH section by typing an "x" and enter comments in the comment section. Please use your independent medical judgment in providing your response. This request does not imply that any particular answer is desired or expected. CLINICAL INDICATORS: (Providers should not edit this section) The medical record indicates that the patient was admitted with SOB, pneumonia, CHF, "Preserved EF", BNP OF 1258# and the patient was given some IV Lasix. Please provide further specificity regarding CHF. ACUITY: (x ) Acute ( ) Chronic ( ) Acute on Chronic ( ) Clinically unable to determine TYPE: ( ) Systolic (HFrEF - heart failure with reduced systolic function/EF) (x ) Diastolic (HFpEF - heart failure with preserved systolic function/EF) ( ) Combined Systolic/Diastolic ( ) Other, please specify: ( ) Clinically unable to determine ( ) Past Medical History of Systolic CHF ( ) Past Medical History of Diastolic CHF ( ) Clinically unable to determine COMMENTS: PLEASE ALSO DOCUMENT RESPONSE IN PROGRESS NOTES AND/OR DISCHARGE SUMMARY Use of terms such as suspected, likely, or probable (associated with a specific diagnosis that is being evaluated, monitored, or treated as if it exists) are acceptable and can be restated in the discharge summary if not ruled out. MTDD
--- NOTE | 2016-12-19 09:59 | Hospitalist Progress Note ---
Assessment and Plan (1) Dyspnea Status: Acute Assessment and plan: This is improving . This is most likely multifactorial- CHF vs PE vs CKD vs pneumonia. Chest x-ray done at [facility] showed right lower lobe infiltrate.Mammogram showed Diffuse edema of the right breast whichcan be attributed to the patient's AV dialysis graft issues. Noconvincing evidence to suggest malignancy. Echo showed Normal LV systolic function, ejection fraction 65%. Grade 2/4 diastolic dysfunction. Mild to moderate left atrial enlargement. Moderate to severe mitral regurgitation. Moderate to severe tricuspid regurgitation. Mild pulmonary hypertension, pulmonary artery pressure estimated at 54 mmHg. CXR showed mildly improved bilateral infrahilar consolidation with some residual remaining. Plan Continue with IV antibiotics, Lasix, anticoagulation, nebs treatment Follow Nephrology's recommendations Evaluate for Home O2 Current Visit: Yes (2) Chronic kidney disease, stage V Status: Chronic Assessment and plan: Patient with a chronic transplant rejection and now has CKD stage V and maturing AV access. Nephrology is following. Current Visit: Yes (3) Pulmonary embolism Status: Chronic Assessment and plan: Doppler of the legs and right upper extremity showed no DVT. continue anticogulation INR monitoring Current Visit: Yes (4) Anemia Status: Chronic Assessment and plan: continue to follow. This is most likely due to underlying CKD Current Visit: No Qualifiers: Anemia type: iron deficiency (5) Renal transplant recipient Status: Chronic Assessment and plan: continue with Cellcept and Prednisone Follow Cellcept level Current Visit: No (6) Diabetes mellitus Status: Chronic Assessment and plan: stable on current regime, hbA1c level-6.1 Current Visit: No Qualifiers: Diabetes mellitus type: type 2 Chronic kidney disease stage: stage 3 ( moderate) (7) HTN (hypertension) Status: Chronic Assessment and plan: stable on meds. Current Visit: No (8) Pneumonia Status: Acute Assessment and plan: on IV antibiotics, BC-negative so far Current Visit: Yes (9) Arm swelling Status: Acute Assessment and plan: Right upper extremity and breast.Doppler showed no DVT and mammogram showed edema. Plan Continue IV lasix Elevate Current Visit: No Hospitalist: Subjective Interval history: Patient seen this am with no new complaints..She was lying down in bed comfortably. She has requests for Home health and Home PT. We will also evaluate her for home O2.Her mammogram showed iffuse edema of the right breast which can be attributed to the patient's AV dialysis graft issues. No convincing evidence to suggest malignancy. Exam - Constitutional Vitals: Period Temp Pulse Resp BP Sys/Buchanan Pulse Ox Last 24 Hr 97.2 F-98.6 F 75-89 20-22 101-115/55-75 83-97 General appearance: no acute distress, other (on NC oxygen) - Head Head exam: Present: normal inspection - Respiratory Respiratory exam: Present: clear to auscultation bilaterally - GI/Abdominal GI/Abdominal exam: Present: normal bowel sounds - Extremities Exam Extremities exam: Present: other (right UE edema) - Neurological Exam Neurological exam: Present: alert Results - Labs CBC & BMP: 12/19/16 02:53 12/19/16 02:53 Lab Results: I have reviewed the past 24 hour labs Quality Measures - VTE Contraindication to Pharmacological VTE Prophylaxis: Already on Theraputic Agent , No Prophylaxis Needed - Stroke Symptom Onset Unknown: No
--- NOTE | 2016-12-19 11:08 | Nephrology Progress Note ---
Nephrology - PN: Subj Interval history: Ms. Bob is seen in follow-up of her chronic renal impairment and her creatinine is essentially stable with a BUN of 110 creatinine of 7. She is not uremic and is eating well. Her dyspnea on exertion is improved she walked in the [place] with me and on room air maintain an oxygen saturation of above 89% during her short wall. Her hematocrit is 24.8 and I think she would benefit from 1 more unit of transfusion and will give that. She is intolerant of IV iron and even p.o. iron due to significant allergic reactions in the past. We will re-dose her erythropoietin. I appreciate Dr. Garrett seeing Ms. Bob. Our plan is to use the right arm access if she needs to begin dialysis. We discussed when to start dialysis with Ms. Bob and we will wait until there are uremic symptoms or symptoms of volume overload that cannot be controlled without dialysis. Exam (PN)-Nephrology - Vital Signs Vital signs: Period Temp Pulse Resp BP Sys/Buchanan Pulse Ox Last 24 Hr 97.2 F-98.6 F 75-89 20-22 101-115/55-75 83-97 - Lab 12/19/16 02:53 12/19/16 02:53 Most recent lab results Calcium 6.3 MG/DL (8.5-10.1) L 12/19/16 02:53 Magnesium 1.9 MG/DL (1.8-2.4) 12/19/16 02:53
[2016-12-19] MEDS ORDERED: SODIUM CHLORIDE 0.9% 250 ML IV PRN (11:10)
[2016-12-20] MEDS: cefTRIAXone 1,000 MG in SODIUM CHLORIDE 0.9% 100 ML IV SCH (04:38)
[2016-12-20] MEDS: AZITHROMYCIN INJ 500 MG in SODIUM CHLORIDE 0.9% 250 ML IV SCH (05:45)
[2016-12-20 06:36] LABS: Basophils % 0.3 % (0.0-0.8); Eosinophils % 0.3 % (0.00-10.9); Hematocrit 26.9 VOL% (35.7-47.0); Hemoglobin 8.9 GM/DL (12.0-16.0); Immature Granulocytes % 0.7 %; Immature Granulocytes Absolute 0.05 #; Lymphocytes # 0.5 10*3/uL (1.4-4.0); Lymphocytes % 6.4 % (21.3-54.2); Mean Corpuscular HGB Conc 33.1 GM/DL (32-36); Mean Corpuscular Hemoglobin 25 PG (27-34); Mean Corpuscular Volume 76.6 FL (87-102); Mean Platelet Volume 9.7 FL (9.6-12.0); Monocytes # 0.6 10*3/uL (0.11-0.8); Monocytes % 8.6 % (1.7-12.7); Neutrophils # 5.9 10*3/uL (1.4-7.4); Neutrophils % 83.7 % (38.7-73.9); Platelet Count 146 T/CUMM (130-400); Red Blood Count 3.51 MC/CUMM (3.8-5.5); Red Cell Distribution Width 15.8 % (9.3-17.3); White Blood Count 7.1 T/CUMM (4-12)
[2016-12-20 06:49] LABS: INR 2.1
[2016-12-20 06:53] LABS: PT Patient Result 23.3 SECS
[2016-12-20 07:12] LABS: Calcium 6.4 MG/DL (8.5-10.1); Osmolality,Calculated 321.8 MOS/KG (273-304)
[2016-12-20] MEDS: MYCOPHENOLATE 180 MG TABLET PO SCH (09:22)
[2016-12-20] MEDS: PANTOPRAZOLE 40 MG TABLET PO SCH (09:22)
[2016-12-20] MEDS: CARVEDILOL 12.5 MG TABLET PO SCH (09:22)
[2016-12-20] MEDS: predniSONE 10 MG TABLET PO SCH (09:22)
[2016-12-20] MEDS: CALCITRIOL 0.25 MCG CAPSULE PO SCH (09:22)
[2016-12-20] MEDS: amLODIPine 10 MG TABLET PO SCH (09:22)
[2016-12-20] MEDS: FUROSEMIDE 40 MG/4 ML VIAL IV SCH (09:22)
[2016-12-20] MEDS: INSULIN LISPRO 100 UNIT/ML SUBCUT SCH ×2 (09:23→14:50)
--- NOTE | 2016-12-20 09:47 | Discharge Summary ---
<Glen Lawson - Last Filed: 12/20/16 09:30> Hospital Course - Hospital Course Hospital Course: Ms. 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 The patient came as a transfer from [facility] on 12/17 for further evaluation of shortness of breath and treatment of suspected right lower lobe pneumonia. Initial labs revealed BUN and creatinine of 98 and 6.9 respectively. Patient also noted to have a hemoglobin and hematocrit of 6.7 and 20.8. Patient was admitted to the hospitalist service for further evaluation and treatment. Patient was transfused. Occult Stool blood was negative.BC showed no growth.Patient was started on IV antibiotics for treatment of pneumonia. Patient also received IV Lasix, nebulizer treatments, and had echocardiogram performed. (Echo revealed EF of 65%). Hydralazine was held and Coreg reduced but other bp meds were continued due to borderline bp.Nephrology was consulted due to patient's chronic kidney disease. General surgery was consulted because of chronic access issues. Patient was noted to have a central stenosis with right wrist and arm edema related to the access in that arm. It was recommended that the access remain in place as dialysis was not indicated at this time. Pt's condition has improved. H&H is 8.9 and 26.9 Kidney function is stable. Dyspnea has improved. Patient was noted to have swelling of the right UE and breast. Doppler of the legs and right upper extremity showed no DVT. Mammogram of her breast showed iffuse edema of the right breast which can be attributed to the patient's AV dialysis graft issues. No convincing evidence to suggest malignancy. She was diuresed. Her coumadin was held while on admission due to elevated INR. Latest INR is 2.1.She didnt qualify for home 02. Her dyspnea has improved and she feels she is ready to be dcd.Vitals are stable, she will be discharged home and has requested Home health services. Further instructions for follow up will be provided by Dr. Mott. Discharge Plan - Discharge Data Disposition: Home Health Service - Discharge Medications New Albuterol/Ipratropium Neb [Duoneb] 3 ml RESP TX RT Q4H PRN #7 PRN Reason: Shortness Of Breath/Wheezing Levofloxacin Tab [Levaquin Tab] 250 mg PO DAILY #7 tablet Carvedilol [Coreg] 12.5 mg PO BID #60 tablet Continue Amlodipine Besylate 10 mg PO DAILY Sodium Bicarb Tab 1,300 mg PO BID Acetaminophen Tab [Tylenol Tab] 325 mg PO Q4H PRN #0 tablet PRN Reason: fever, headache/body aches Docusate Sodium Cap [Colace Cap] 100 mg PO BID PRN #0 capsule PRN Reason: Constipation Lactulose Liquid [Chronulac] 20 gm PO Q4H PRN #0 PRN Reason: Constipation Loperamide Cap [Imodium Cap] 2 mg PO TID PRN #0 capsule PRN Reason: Diarrhea Pantoprazole Tab [Protonix Tab] 40 mg PO DAILY tablet HYDROcodone/ACETAMIN 7.5-325 [[place] 7.5-325] 1 tablet PO Q4H PRN #20 PRN Reason: Pain Calcitriol [Rocaltrol] 0.25 mcg PO DAILY Cetirizine Tab [ZyrTEC Tab] 10 mg PO DAILY predniSONE TAB [PredniSONE] 10 mg PO DAILY Mycophenolate Tab [Myfortic] 180 mg PO BID tablet Ranitidine Tab [Zantac Tab] 150 mg PO DAILY Warfarin [Coumadin] 5 mg PO DAILY Furosemide Tab [Lasix Tab] 40 mg PO BID Discontinued Carvedilol [Coreg] 25 mg PO BID hydrALAZINE TAB [Apresoline Tab] 50 mg PO TID - Follow Up or Referral - Forms/Instructions Exam - Constitutional Vitals: Period Temp Pulse Resp BP Sys/Buchanan Pulse Ox Last 24 Hr 97.2 F-98.2 F 82-88 18-22 101-132/57-69 86-96 Discharge Results Procedures and tests throughout hospitalization: Pending Orders 12/18/16 09:39 Sputum Culture and Gram Stain Routine Urine Culture Routine 12/18/16 09:51 Blood Culture Routine Mycophenolic Acid, Serum Routine 12/18/16 16:32 Occult Blood, Stool Routine Labs on day of discharge: Labs from last 24 hours 12/20/16 12/20/16 12/20/16 07:03 06:28 06:28 WBC RBC Hgb Hct MCV MCH MCHC RDW Plt Count MPV Neut % (Auto) Lymph % (Auto) [place] % (Auto) Eos % (Auto) Baso % (Auto) Neut # (Auto) Lymph # (Auto) [place] # (Auto) Eos # (Auto) Baso # (Auto) Immature Gran % Nucleated RBC % Immature Gran # Nucleated RBCs # Immature Plt Fraction INR 2.1 PT Patient/Control Mix 23.3 Sodium 144 Potassium 4.0 Chloride 111 H Carbon Dioxide 17 L Anion Gap 20.0 H BUN 111 H Creatinine 6.80 H GFR Calculation 6 BUN/Creatinine Ratio 16.00 Glucose 114 H POC Glucose 109 H Calculated Osmolality 321.8 H Calcium 6.4 L Phosphorus Procalcitonin Blood Type Antibody Screen Crossmatch Blood Bank Comment 12/20/16 12/19/16 12/19/16 06:28 19:21 15:18 WBC 7.1 RBC 3.51 L Hgb 8.9 L Hct 26.9 L MCV 76.6 L MCH 25 L MCHC 33.1 RDW 15.8 Plt Count 146 MPV 9.7 Neut % (Auto) 83.7 H Lymph % (Auto) 6.4 L [place] % (Auto) 8.6 Eos % (Auto) 0.3 Baso % (Auto) 0.3 Neut # (Auto) 5.9 Lymph # (Auto) 0.5 L [place] # (Auto) 0.6 Eos # (Auto) 0.0 Baso # (Auto) 0.0 Immature Gran % 0.7 Nucleated RBC % 0.0 Immature Gran # 0.05 Nucleated RBCs # 0.00 Immature Plt Fraction 0.0 INR PT Patient/Control Mix Sodium Potassium Chloride Carbon Dioxide Anion Gap BUN Creatinine GFR Calculation BUN/Creatinine Ratio Glucose POC Glucose 201 H 222 H Calculated Osmolality Calcium Phosphorus Procalcitonin Blood Type Antibody Screen Crossmatch Blood Bank Comment 12/19/16 12/19/16 12/19/16 11:50 11:10 02:50 WBC RBC Hgb Hct MCV MCH MCHC RDW Plt Count MPV Neut % (Auto) Lymph % (Auto) [place] % (Auto) Eos % (Auto) Baso % (Auto) Neut # (Auto) Lymph # (Auto) [place] # (Auto) Eos # (Auto) Baso # (Auto) Immature Gran % Nucleated RBC % Immature Gran # Nucleated RBCs # Immature Plt Fraction INR PT Patient/Control Mix Sodium Potassium Chloride Carbon Dioxide Anion Gap BUN Creatinine GFR Calculation BUN/Creatinine Ratio Glucose POC Glucose 197 H Calculated Osmolality Calcium Phosphorus 5.5 H Procalcitonin Blood Type Cancelled Antibody Screen Cancelled Crossmatch See Detail Blood Bank Comment Cancelled 12/17/16 06:26 WBC RBC Hgb Hct MCV MCH MCHC RDW Plt Count MPV Neut % (Auto) Lymph % (Auto) [place] % (Auto) Eos % (Auto) Baso % (Auto) Neut # (Auto) Lymph # (Auto) [place] # (Auto) Eos # (Auto) Baso # (Auto) Immature Gran % Nucleated RBC % Immature Gran # Nucleated RBCs # Immature Plt Fraction INR PT Patient/Control Mix Sodium Potassium Chloride Carbon Dioxide Anion Gap BUN Creatinine GFR Calculation BUN/Creatinine Ratio Glucose POC Glucose Calculated Osmolality Calcium Phosphorus Procalcitonin 0.40 H Blood Type Antibody Screen Crossmatch Blood Bank Comment Preliminary micro results at discharge 12/18/16 09:51 Blood Culture - Preliminary Blood No growth at 1 day 12/18/16 09:51 Blood Culture - Preliminary Blood No growth at 1 day DS: Provider Date of admission: 12/17/16 03:29 Primary care physician: Bg Courtney Attending physician on admission: Saroj Che MD Consults: 12/17/16 03:29 Consult to Physician [CONS] Routine Comment: CKD 5 patient with failing transplant Consulting Provider: Bernard Field Consult to Specialist Group: Nephrology When should Consulting Provider be notified: In am Person Notified: Dr. Field Date Notified: 12/17/16 Time Notified: 08:30 12/18/16 11:04 Consult to Physician [CONS] Routine Comment: swollen arm and breast on access side. Consulting Provider: Dewayne Garrett Discharging clinician: Glen Lawson NP <Ann Mott - Last Filed: 12/20/16 10:38> Hospital Course - Time spent with patient Time with patient DS: Greater than 30 minutes (Greater than 35mins) Diagnosis - Discharge Diagnosis (1) Dyspnea Status: Acute (2) Chronic kidney disease, stage V Status: Chronic (3) Pulmonary embolism Status: Chronic (4) Anemia Status: Chronic (5) Renal transplant recipient Status: Chronic (6) Diabetes mellitus Status: Chronic (7) HTN (hypertension) Status: Chronic (8) Pneumonia Status: Acute (9) Arm swelling Status: Acute Discharge Plan - Discharge Data Condition at Discharge: Stable Discharge Diet: heart healthy - Forms/Instructions Additional Discharge Instructions: Follow up with Nephrology as scheduled. Follow with PCP in 1week Exam - Constitutional General appearance: mild distress - Respiratory Respiratory exam: Present: clear to auscultation bilaterally - Cardiovascular Cardiovascular exam: Present: regular rate and rhythm - GI/Abdominal GI/Abdominal exam: Present: normal bowel sounds - Extremities Exam Extremities exam: Present: normal inspection - Neurological Exam Neurological exam: Present: alert, oriented X3
[2016-12-20 11:42] VITALS: BP 124/61
[2016-12-20 19:31] LABS: Mycophenolic Acid 3.3 mcg/mL (1.0 - 3.5)
== END 2016-12-20 15:12 | disposition home health service (06) | DRG 193 ==
LOC: EDUNIT# → EDBD → N.ED 02:30 → N.EDINP 03:29 → SUATTDRO 03:29 → N.2E 04:29
PROVIDERS: ADMIT Internal Medicine; ATTEND Internal Medicine

== ENCOUNTER 2017-03-09 19:49 | Inpatient (IN) ==
[2017-03-09] MEDS ORDERED: PHYTONADIONE 5 MG TABLET PO ONE (23:08)
[2017-03-09 23:24] LABS: Basophils % 0.7 % (0.0-0.8); Eosinophils # 0.3 10*3/uL (0.0-0.87); Eosinophils % 6.8 % (0.00-10.9); Hematocrit 24.7 VOL% (35.7-47.0); Hemoglobin 8.1 GM/DL (12.0-16.0); Immature Granulocytes % 0.4 %; Immature Granulocytes Absolute 0.02 #; Lymphocytes # 0.5 10*3/uL (1.4-4.0); Lymphocytes % 10.8 % (21.3-54.2); Mean Corpuscular HGB Conc 32.8 GM/DL (32-36); Mean Corpuscular Hemoglobin 26 PG (27-34); Mean Corpuscular Volume 78.2 FL (87-102); Mean Platelet Volume 10.3 FL (9.6-12.0); Monocytes # 0.5 10*3/uL (0.11-0.8); Monocytes % 9.9 % (1.7-12.7); Neutrophils # 3.2 10*3/uL (1.4-7.4); Neutrophils % 71.4 % (38.7-73.9); Platelet Count 223 T/CUMM (130-400); Red Blood Count 3.16 MC/CUMM (3.8-5.5); Red Cell Distribution Width 14.4 % (9.3-17.3); White Blood Count 4.5 T/CUMM (4-12)
[2017-03-09 23:41] LABS: Albumin 3.9 G/DL (3.4-5.0); Bilirubin,Total 0.5 MG/DL (0.2-1.0); Osmolality,Calculated 304.8 MOS/KG (273-304); Potassium 3.5 MMOL/L (3.5-5.1); Total Protein 7.6 G/DL (6.4-8.3)
[2017-03-09 23:43] LABS: PT Patient Result 74.3 SECS; Partial Thromboplastin Time 79.5 SECS (0-40)
[2017-03-09 23:45] LABS: Calcium 5.4 MG/DL (8.5-10.1)
[2017-03-09 23:47] LABS: INR 7.6
[2017-03-10] MEDS ORDERED: ACETAMINOPHEN 325 MG TABLET PO PRN (00:49)
[2017-03-10] MEDS ORDERED: ONDANSETRON 4 MG/2 ML VIAL IV PRN (00:51)
[2017-03-10 05:31] LABS: Basophils % 0.5 % (0.0-0.8); Eosinophils # 0.3 10*3/uL (0.0-0.87); Eosinophils % 6.1 % (0.00-10.9); Hematocrit 19.8 VOL% (35.7-47.0); Immature Granulocytes % 0.5 %; Immature Granulocytes Absolute 0.02 #; Lymphocytes # 0.5 10*3/uL (1.4-4.0); Lymphocytes % 13.1 % (21.3-54.2); Mean Corpuscular HGB Conc 32.3 GM/DL (32-36); Mean Corpuscular Hemoglobin 25 PG (27-34); Mean Corpuscular Volume 76.7 FL (87-102); Mean Platelet Volume 10.2 FL (9.6-12.0); Monocytes # 0.5 10*3/uL (0.11-0.8); Monocytes % 10.9 % (1.7-12.7); Neutrophils # 2.8 10*3/uL (1.4-7.4); Neutrophils % 68.9 % (38.7-73.9); Platelet Count 176 T/CUMM (130-400); Red Blood Count 2.58 MC/CUMM (3.8-5.5); Red Cell Distribution Width 14.2 % (9.3-17.3); White Blood Count 4.1 T/CUMM (4-12)
[2017-03-10 05:37] LABS: Hemoglobin 6.4 GM/DL (12.0-16.0)
[2017-03-10 06:10] LABS: PT Patient Result 66.7 SECS
[2017-03-10 06:11] LABS: INR 6.8
[2017-03-10 06:16] LABS: Osmolality,Calculated 310.5 MOS/KG (273-304); Potassium 3.2 MMOL/L (3.5-5.1)
[2017-03-10 06:25] LABS: Calcium 5.4 MG/DL (8.5-10.1)
[2017-03-10] MEDS ORDERED: GLUCAGON 1 MG VIAL IM PRN (06:34)
[2017-03-10] MEDS ORDERED: DEXTROSE 50% 25 GM/50 ML VIAL IV PRN (06:34)
[2017-03-10] MEDS: MYCOPHENOLATE 180 MG TABLET PO SCH ×2 (08:24→21:16)
[2017-03-10] MEDS: PANTOPRAZOLE 40 MG TABLET PO SCH (08:24)
[2017-03-10] MEDS: amLODIPine 10 MG TABLET PO SCH (08:24)
[2017-03-10] MEDS: CARVEDILOL 25 MG TABLET PO SCH ×2 (08:24→21:17)
[2017-03-10] MEDS: CALCITRIOL 0.25 MCG CAPSULE PO SCH (08:24)
[2017-03-10] MEDS: predniSONE 5 MG TABLET PO SCH (08:24)
[2017-03-10] MEDS: CETIRIZINE 10 MG TABLET PO SCH (08:24)
[2017-03-10] MEDS: SODIUM BICARBONATE 650 MG TABLET PO SCH ×2 (08:25→21:16)
[2017-03-10] MEDS: INSULIN REGULAR 100 UNIT/ML SUBCUT SCH ×4 (08:25→20:54)
[2017-03-10 13:44] LABS: Hematocrit 23.6 VOL% (35.7-47.0); Hemoglobin 7.9 GM/DL (12.0-16.0)
[2017-03-10 16:01] LABS: % Iron Saturation 26.3 % (18-50)
[2017-03-10] MEDS: FAMOTIDINE 20 MG TABLET PO SCH (17:35)
[2017-03-10] MEDS: CALCIUM (CARBONATE) 600 MG TABLET PO SCH (21:16)
[2017-03-11 05:24] LABS: Basophils % 0.2 % (0.0-0.8); Eosinophils # 0.1 10*3/uL (0.0-0.87); Eosinophils % 2.2 % (0.00-10.9); Hematocrit 22.5 VOL% (35.7-47.0); Hemoglobin 7.4 GM/DL (12.0-16.0); Immature Granulocytes % 0.7 %; Immature Granulocytes Absolute 0.03 #; Lymphocytes # 0.5 10*3/uL (1.4-4.0); Mean Corpuscular HGB Conc 32.9 GM/DL (32-36); Mean Corpuscular Hemoglobin 25 PG (27-34); Mean Corpuscular Volume 77.3 FL (87-102); Mean Platelet Volume 9.8 FL (9.6-12.0); Monocytes # 0.4 10*3/uL (0.11-0.8); Monocytes % 9.2 % (1.7-12.7); Neutrophils # 3.6 10*3/uL (1.4-7.4); Neutrophils % 77.7 % (38.7-73.9); Platelet Count 160 T/CUMM (130-400); Red Blood Count 2.91 MC/CUMM (3.8-5.5); Red Cell Distribution Width 14.1 % (9.3-17.3); White Blood Count 4.6 T/CUMM (4-12)
[2017-03-11 05:52] LABS: Albumin 3.4 G/DL (3.4-5.0); Bilirubin,Total 0.7 MG/DL (0.2-1.0); Osmolality,Calculated 310.3 MOS/KG (273-304); Phosphorous 5.4 MG/DL (2.5-4.9); Potassium 3.5 MMOL/L (3.5-5.1); Total Protein 6.1 G/DL (6.4-8.3)
[2017-03-11 06:31] LABS: Calcium 5.6 MG/DL (8.5-10.1)
[2017-03-11] MEDS: CALCITRIOL 0.25 MCG CAPSULE PO SCH (07:59)
[2017-03-11] MEDS: SODIUM BICARBONATE 650 MG TABLET PO SCH ×2 (07:59→21:36)
[2017-03-11] MEDS: amLODIPine 10 MG TABLET PO SCH (07:59)
[2017-03-11] MEDS: PANTOPRAZOLE 40 MG TABLET PO SCH (08:00)
[2017-03-11] MEDS: CALCIUM (CARBONATE) 600 MG TABLET PO SCH ×2 (08:00→21:36)
[2017-03-11] MEDS: CETIRIZINE 10 MG TABLET PO SCH (08:00)
[2017-03-11] MEDS: INSULIN REGULAR 100 UNIT/ML SUBCUT SCH ×4 (08:00→21:35)
[2017-03-11] MEDS: MYCOPHENOLATE 180 MG TABLET PO SCH ×2 (08:00→21:36)
[2017-03-11] MEDS: CARVEDILOL 25 MG TABLET PO SCH ×2 (08:00→21:36)
[2017-03-11] MEDS: predniSONE 5 MG TABLET PO SCH (08:01)
[2017-03-11] MEDS ORDERED: EPOETIN ALFA 10,000 UNIT/1 ML VIAL SUBCUT ONE (08:51)
[2017-03-11 10:11] LABS: INR 2.4
[2017-03-11 10:15] LABS: PT Patient Result 24.3 SECS
[2017-03-11] MEDS ORDERED: MAGNESIUM SULF RIDER 4 GM in PREMIX 1 EACH IV PRN (10:24)
[2017-03-11] MEDS ORDERED: MAGNESIUM SULF RIDER 2 GM in PREMIX 1 EACH IV PRN (10:24)
[2017-03-11] MEDS: FAMOTIDINE 20 MG TABLET PO SCH (16:31)
[2017-03-11] MEDS ORDERED: WARFARIN 1 MG TABLET PO SCH (18:00)
[2017-03-12 06:29] LABS: INR 2.3
[2017-03-12 06:33] LABS: PT Patient Result 23.6 SECS
[2017-03-12] MEDS: INSULIN REGULAR 100 UNIT/ML SUBCUT SCH ×3 (07:59→16:53)
[2017-03-12] MEDS: MYCOPHENOLATE 180 MG TABLET PO SCH (08:59)
[2017-03-12] MEDS: SODIUM BICARBONATE 650 MG TABLET PO SCH (08:59)
[2017-03-12] MEDS: CETIRIZINE 10 MG TABLET PO SCH (08:59)
[2017-03-12] MEDS: PANTOPRAZOLE 40 MG TABLET PO SCH (08:59)
[2017-03-12] MEDS: CALCIUM (CARBONATE) 600 MG TABLET PO SCH (08:59)
[2017-03-12] MEDS: amLODIPine 10 MG TABLET PO SCH (08:59)
[2017-03-12] MEDS: CALCITRIOL 0.25 MCG CAPSULE PO SCH (08:59)
[2017-03-12] MEDS: predniSONE 5 MG TABLET PO SCH (08:59)
[2017-03-12] MEDS: CARVEDILOL 25 MG TABLET PO SCH (08:59)
[2017-03-12 16:53] VITALS: BP 131/67
== END 2017-03-12 17:17 | disposition home or self-care (01) | DRG 948 ==
LOC: N.EDINP 19:49 → N.ED 19:49 → SUATTDRO 23:23 → N.5E 23:52 → SUATTDRO 03-10 17:25
PROVIDERS: ADMIT Hospitalist; ATTEND Hospitalist

== ENCOUNTER 2017-04-17 17:02 | Inpatient (IN) ==
[2017-04-17 18:19] LABS: Basophils # 0.1 10*3/uL (0.0-0.2); Basophils % 0.9 % (0.0-0.8); Eosinophils % 34.8 % (0.00-10.9); Hematocrit 28.2 VOL% (35.7-47.0); Hemoglobin 9.7 GM/DL (12.0-16.0); Immature Granulocytes % 0.2 %; Immature Granulocytes Absolute 0.01 #; Lymphocytes # 1.1 10*3/uL (1.4-4.0); Lymphocytes % 19.3 % (21.3-54.2); Mean Corpuscular HGB Conc 34.4 GM/DL (32-36); Mean Corpuscular Hemoglobin 27 PG (27-34); Mean Corpuscular Volume 78.1 FL (87-102); Mean Platelet Volume 9.5 FL (9.6-12.0); Monocytes # 0.3 10*3/uL (0.11-0.8); Monocytes % 5.6 % (1.7-12.7); Neutrophils # 2.2 10*3/uL (1.4-7.4); Neutrophils % 39.2 % (38.7-73.9); Platelet Count 166 T/CUMM (130-400); Red Blood Count 3.61 MC/CUMM (3.8-5.5); Red Cell Distribution Width 14.9 % (9.3-17.3); White Blood Count 5.7 T/CUMM (4-12)
[2017-04-17 18:37] LABS: PT Patient Result 94.9 SECS; Partial Thromboplastin Time 96.9 SECS (0-40)
[2017-04-17 18:38] LABS: INR 9.8
[2017-04-17 18:41] LABS: Burr Cells Few; Eosinophils 31 % (0-10); Lymphocytes 19 % (20-55); Ovalocytes 1+; Platelet Estimate Adequate; Poikilocytosis 2+; Segmented Neutrophils 44 % (50-85); Tear Drop Cells Few; Total Cells Counted 100
[2017-04-17 18:42] LABS: Anisocytosis 1+; Microcytosis 1+
[2017-04-17] MEDS ORDERED: LEVOFLOXACIN INJ 750 MG in PREMIX 1 EACH IV STA (19:25)
[2017-04-17] MEDS ORDERED: LEVOFLOXACIN INJ 150 ML IV ONE (19:36)
[2017-04-17 19:44] LABS: Apearance,Urine CLEAR (Clear); Bacteria,Urine Few /HPF (Few); Bilirubin,Urine Negative (Negative); Blood, Urine Large mg/dL (Negative); Glucose,Urine (UA) 150 mg/dL (Negative); Ketones,Urine Negative (Negative); Nitrite,Urine Negative (Negative); Protein,Urine 100 MG/DL; RBC,Urine 859 /HPF (0-4); Squamous Epithelial Cell,Urine Occasional /HPF (0-10); Urine Color Yellow (Yellow); Urine Specific Gravity 1.008 (1.001-1.035); Urine Urobilinogen < 2.0 EU/DL (0.2-1.0); WBC,Urine 214 /HPF (0-6)
[2017-04-17 19:45] LABS: Alanine Aminotransferase 14 U/L (13-56); Albumin 3.5 G/DL (3.4-5.0); Alkaline Phosphatase 177 U/L (45-117); Aspartate Amino Transferase 21 U/L (0-37); Bilirubin,Total < 0.39 MG/DL (0.2-1.0); Blood Urea Nitrogen 70 MG/DL (7-18); Glucose 86 MG/DL (74-106); Potassium 4.8 MMOL/L (3.5-5.1); Sodium 136 MMOL/L (136-145); Total Protein 7.5 G/DL (6.4-8.3)
[2017-04-17 19:47] LABS: Calcium 5.2 MG/DL (8.5-10.1)
[2017-04-17] MEDS ORDERED: ONDANSETRON 4 MG/2 ML VIAL IV PRN (22:01)
[2017-04-17] MEDS ORDERED: FUROSEMIDE 40 MG TABLET PO SCH (22:01)
[2017-04-17] MEDS ORDERED: PHYTONADIONE 10 MG/1 ML AMP SUBCUT STA (22:01)
[2017-04-17] MEDS ORDERED: ACETAMINOPHEN 325 MG TABLET PO PRN (22:01)
[2017-04-17] MEDS ORDERED: MORPHINE 2 MG/1 ML SYRINGE IV PRN (22:01)
[2017-04-17] MEDS ORDERED: PHYTONADIONE 5 MG TABLET PO ONE (22:01)
[2017-04-17] MEDS: SODIUM BICARBONATE 650 MG TABLET PO SCH (22:59)
[2017-04-17] MEDS: MYCOPHENOLATE 180 MG TABLET PO SCH (22:59)
[2017-04-17] MEDS: CARVEDILOL 25 MG TABLET PO SCH (22:59)
[2017-04-17] MEDS: SODIUM CHLORIDE 0.9% 1,000 ML IV SCH (23:00)
[2017-04-18 07:32] LABS: Basophils % 0.7 % (0.0-0.8); Eosinophils # 1.7 10*3/uL (0.0-0.87); Eosinophils % 30.9 % (0.00-10.9); Hematocrit 24.3 VOL% (35.7-47.0); Hemoglobin 8.1 GM/DL (12.0-16.0); Immature Granulocytes % 0.4 %; Immature Granulocytes Absolute 0.02 #; Lymphocytes # 0.9 10*3/uL (1.4-4.0); Lymphocytes % 16.4 % (21.3-54.2); Mean Corpuscular HGB Conc 33.3 GM/DL (32-36); Mean Corpuscular Hemoglobin 26 PG (27-34); Mean Corpuscular Volume 78.4 FL (87-102); Monocytes # 0.5 10*3/uL (0.11-0.8); Monocytes % 8.9 % (1.7-12.7); Neutrophils # 2.3 10*3/uL (1.4-7.4); Neutrophils % 42.7 % (38.7-73.9); Platelet Count 138 T/CUMM (130-400); Red Cell Distribution Width 14.8 % (9.3-17.3); White Blood Count 5.4 T/CUMM (4-12)
[2017-04-18 07:48] LABS: PT Patient Result 64.5 SECS
[2017-04-18 07:49] LABS: INR 6.5
[2017-04-18 07:53] LABS: Burr Cells Slight; Eosinophils 32 % (0-10); Giant Platelets Few; Hypochromasia 1+; Lymphocytes 13 % (20-55); Microcytosis 1+; Ovalocytes Slight; Platelet Estimate Normal; Segmented Neutrophils 52 % (50-85); Total Cells Counted 100
[2017-04-18] MEDS ORDERED: NON-FORMULARY MEDICATION (Omeprazole [Omeprazole] 40 MG) PO SCH (08:00)
[2017-04-18] MEDS ORDERED: EPOETIN ALFA 10,000 UNIT/1 ML VIAL IV ONE (08:48)
[2017-04-18 08:50] LABS: Magnesium 1.7 MG/DL (1.8-2.4)
[2017-04-18 08:54] LABS: Calcium 5.2 MG/DL (8.5-10.1)
[2017-04-18] MEDS: CALCITRIOL 0.25 MCG CAPSULE PO SCH ×2 (10:15→10:55)
[2017-04-18] MEDS: SODIUM BICARBONATE 650 MG TABLET PO SCH ×3 (10:15→20:46)
[2017-04-18] MEDS: amLODIPine 10 MG TABLET PO SCH ×2 (10:15→10:55)
[2017-04-18] MEDS: CETIRIZINE 10 MG TABLET PO SCH ×2 (10:15→10:56)
[2017-04-18] MEDS: PANTOPRAZOLE 40 MG TABLET PO SCH ×2 (10:15→10:56)
[2017-04-18] MEDS: MYCOPHENOLATE 180 MG TABLET PO SCH ×3 (10:15→20:46)
[2017-04-18] MEDS: CARVEDILOL 25 MG TABLET PO SCH ×3 (10:15→20:46)
[2017-04-18] MEDS: predniSONE 10 MG TABLET PO SCH ×2 (10:15→10:55)
[2017-04-18] MEDS: SODIUM CHLORIDE 0.9% 1,000 ML IV SCH (16:48)
[2017-04-19 07:14] LABS: Potassium 5.5 MMOL/L (3.5-5.1)
[2017-04-19 07:16] LABS: Calcium 5.3 MG/DL (8.5-10.1)
[2017-04-19] MEDS ORDERED: LIDOCAINE/PRILOCAINE CREAM 5 GM TUBE TOP ONE (08:34)
[2017-04-19] MEDS: CALCITRIOL 0.25 MCG CAPSULE PO SCH (08:36)
[2017-04-19] MEDS: SODIUM BICARBONATE 650 MG TABLET PO SCH (08:36)
[2017-04-19] MEDS: amLODIPine 10 MG TABLET PO SCH (08:36)
[2017-04-19] MEDS: MYCOPHENOLATE 180 MG TABLET PO SCH ×2 (08:37→21:17)
[2017-04-19] MEDS: PANTOPRAZOLE 40 MG TABLET PO SCH (08:37)
[2017-04-19] MEDS: predniSONE 10 MG TABLET PO SCH (08:37)
[2017-04-19] MEDS: CETIRIZINE 10 MG TABLET PO SCH (08:37)
[2017-04-19] MEDS: CARVEDILOL 25 MG TABLET PO SCH ×2 (08:37→21:17)
[2017-04-19] MEDS ORDERED: EPOETIN ALFA 2,000 UNIT/1 ML VIAL IV PRN (08:39)
[2017-04-19] MEDS: predniSONE 5 MG TABLET PO SCH (09:31)
[2017-04-19 12:46] LABS: Hepatitis A Ab IgM Quant 0.05 Index; Hepatitis A Ab IgM Result Negative (Negative); Hepatitis B Core IgM Quant 0.11 Index; Hepatitis B Core IgM Result Negative (Negative); Hepatitis B Surface Ag Quant < 0.10 Index; Hepatitis B Surface Ag Result Negative (Negative); Hepatitis C Virus Ab Quant 0.02 Index; Hepatitis C Virus Ab Result Negative (Negative)
[2017-04-19] MEDS: CALCIUM (CARBONATE) 600 MG TABLET PO SCH (22:15)
[2017-04-20 04:43] LABS: INR 1.3; PT Patient Result 13.8 SECS
[2017-04-20 05:23] LABS: Osmolality,Calculated 293.5 MOS/KG (273-304); Potassium 4.5 MMOL/L (3.5-5.1)
[2017-04-20 06:30] LABS: Calcium 5.5 MG/DL (8.5-10.1)
[2017-04-20] MEDS: CALCITRIOL 0.25 MCG CAPSULE PO SCH (09:03)
[2017-04-20] MEDS: CARVEDILOL 25 MG TABLET PO SCH ×2 (09:03→21:55)
[2017-04-20] MEDS: PANTOPRAZOLE 40 MG TABLET PO SCH (09:03)
[2017-04-20] MEDS: amLODIPine 10 MG TABLET PO SCH (09:03)
[2017-04-20] MEDS: predniSONE 5 MG TABLET PO SCH (09:04)
[2017-04-20] MEDS: CALCIUM (CARBONATE) 600 MG TABLET PO SCH ×2 (09:04→21:55)
[2017-04-20] MEDS: MYCOPHENOLATE 180 MG TABLET PO SCH ×2 (09:04→21:55)
[2017-04-20] MEDS: CETIRIZINE 10 MG TABLET PO SCH (09:04)
[2017-04-20 11:34] LABS: Basophils % 0.3 % (0.0-0.8); Eosinophils # 0.1 10*3/uL (0.0-0.87); Eosinophils % 1.5 % (0.00-10.9); Hematocrit 22.1 VOL% (35.7-47.0); Hemoglobin 7.4 GM/DL (12.0-16.0); Immature Granulocytes % 1.2 %; Immature Granulocytes Absolute 0.04 #; Lymphocytes # 0.8 10*3/uL (1.4-4.0); Lymphocytes % 22.3 % (21.3-54.2); Mean Corpuscular HGB Conc 33.5 GM/DL (32-36); Mean Corpuscular Hemoglobin 26 PG (27-34); Mean Corpuscular Volume 78.4 FL (87-102); Mean Platelet Volume 9.8 FL (9.6-12.0); Monocytes # 0.5 10*3/uL (0.11-0.8); Monocytes % 13.5 % (1.7-12.7); Neutrophils # 2.1 10*3/uL (1.4-7.4); Neutrophils % 61.2 % (38.7-73.9); Platelet Count 150 T/CUMM (130-400); Red Blood Count 2.82 MC/CUMM (3.8-5.5); Red Cell Distribution Width 14.8 % (9.3-17.3); White Blood Count 3.4 T/CUMM (4-12)
[2017-04-20] MEDS ORDERED: SODIUM CHLORIDE 0.9% 1,000 ML IV PRN (11:44)
[2017-04-20] MEDS: APIXABAN 2.5 MG TABLET PO SCH ×2 (14:54→21:55)
[2017-04-20 19:36] LABS: Hematocrit 27.4 VOL% (35.7-47.0); Hemoglobin 9.2 GM/DL (12.0-16.0)
[2017-04-21 06:00] LABS: INR 1.3; PT Patient Result 13.2 SECS
[2017-04-21 06:18] LABS: Osmolality,Calculated 280.8 MOS/KG (273-304); Potassium 4.1 MMOL/L (3.5-5.1)
[2017-04-21] MEDS: CALCITRIOL 0.25 MCG CAPSULE PO SCH (10:22)
[2017-04-21] MEDS: APIXABAN 2.5 MG TABLET PO SCH ×2 (10:22→21:25)
[2017-04-21] MEDS: CALCIUM (CARBONATE) 600 MG TABLET PO SCH ×2 (10:22→21:25)
[2017-04-21] MEDS: MYCOPHENOLATE 180 MG TABLET PO SCH ×2 (10:22→21:25)
[2017-04-21] MEDS: PANTOPRAZOLE 40 MG TABLET PO SCH (10:23)
[2017-04-21] MEDS: CARVEDILOL 25 MG TABLET PO SCH ×2 (10:23→21:25)
[2017-04-21] MEDS: CETIRIZINE 10 MG TABLET PO SCH (10:23)
[2017-04-21] MEDS: predniSONE 5 MG TABLET PO SCH (10:23)
[2017-04-21] MEDS: amLODIPine 10 MG TABLET PO SCH (10:52)
[2017-04-22 07:27] LABS: INR 1.2
[2017-04-22] MEDS: PANTOPRAZOLE 40 MG TABLET PO SCH (08:07)
[2017-04-22] MEDS: CALCIUM (CARBONATE) 600 MG TABLET PO SCH ×2 (08:07→20:43)
[2017-04-22] MEDS: MYCOPHENOLATE 180 MG TABLET PO SCH ×2 (08:07→20:43)
[2017-04-22] MEDS: CALCITRIOL 0.25 MCG CAPSULE PO SCH (08:07)
[2017-04-22] MEDS: predniSONE 5 MG TABLET PO SCH (08:07)
[2017-04-22] MEDS: amLODIPine 10 MG TABLET PO SCH (08:07)
[2017-04-22] MEDS: APIXABAN 2.5 MG TABLET PO SCH ×2 (08:07→20:44)
[2017-04-22] MEDS: CARVEDILOL 25 MG TABLET PO SCH ×2 (08:07→20:44)
[2017-04-22] MEDS: CETIRIZINE 10 MG TABLET PO SCH (08:07)
[2017-04-23 07:17] LABS: INR 1.2
[2017-04-23] MEDS: PANTOPRAZOLE 40 MG TABLET PO SCH (08:57)
[2017-04-23] MEDS: amLODIPine 10 MG TABLET PO SCH (08:57)
[2017-04-23] MEDS: APIXABAN 2.5 MG TABLET PO SCH (08:57)
[2017-04-23] MEDS: MYCOPHENOLATE 180 MG TABLET PO SCH (08:57)
[2017-04-23] MEDS: CETIRIZINE 10 MG TABLET PO SCH (08:57)
[2017-04-23] MEDS: CALCITRIOL 0.25 MCG CAPSULE PO SCH (08:57)
[2017-04-23] MEDS: CALCIUM (CARBONATE) 600 MG TABLET PO SCH (08:57)
[2017-04-23] MEDS: CARVEDILOL 25 MG TABLET PO SCH (08:57)
[2017-04-23] MEDS: predniSONE 5 MG TABLET PO SCH (08:57)
[2017-04-23 09:13] VITALS: BP 127/73
== END 2017-04-23 14:38 | disposition home health service (06) | DRG 813 ==
LOC: N.ED 17:02 → N.EDINP 20:03 → SUATTDRO 20:03 → N.5E 20:50
PROVIDERS: ADMIT Internal Medicine; ATTEND Hospitalist

== ENCOUNTER 2017-06-24 06:50 | Inpatient (IN) ==
[2017-06-24] MEDS ORDERED: cefTRIAXone 1,000 MG in SODIUM CHLORIDE 0.9% 100 ML IV STA (07:17)
[2017-06-24] MEDS ORDERED: cefTRIAXone 1,000 MG VIAL ONE (07:56)
[2017-06-24 08:31] LABS: Basophils % 0.7 % (0.0-0.8); Eosinophils # 0.2 10*3/uL (0.0-0.87); Eosinophils % 4.1 % (0.00-10.9); Hematocrit 28.7 VOL% (35.7-47.0); Hemoglobin 8.3 GM/DL (12.0-16.0); Immature Granulocytes Absolute 0.04 #; Lymphocytes # 0.9 10*3/uL (1.4-4.0); Lymphocytes % 21.6 % (21.3-54.2); Mean Corpuscular HGB Conc 28.9 GM/DL (32-36); Mean Corpuscular Hemoglobin 24 PG (27-34); Mean Corpuscular Volume 81.8 FL (87-102); Mean Platelet Volume 8.6 FL (9.6-12.0); Monocytes # 0.3 10*3/uL (0.11-0.8); Monocytes % 6.5 % (1.7-12.7); NRBC # 0.02 10*3/uL; Neutrophils # 2.8 10*3/uL (1.4-7.4); Neutrophils % 66.1 % (38.7-73.9); Platelet Count 208 T/CUMM (130-400); Red Blood Count 3.51 MC/CUMM (3.8-5.5); Red Cell Distribution Width 19.8 % (9.3-17.3); White Blood Count 4.2 T/CUMM (4-12)
[2017-06-24] MEDS ORDERED: MORPHINE 2 MG/1 ML SYRINGE IV STA (08:37)
[2017-06-24] MEDS ORDERED: MORPHINE 2 MG/1 ML SYRINGE ONE (08:42)
[2017-06-24 08:57] LABS: Albumin 3.1 G/DL (3.4-5.0); Bilirubin,Total 0.7 MG/DL (0.2-1.0); Calcium 9.1 MG/DL (8.5-10.1); Osmolality,Calculated 281.4 MOS/KG (273-304); Potassium 3.3 MMOL/L (3.5-5.1); Total Protein 9.6 G/DL (6.4-8.3); Troponin I Only 0.019 NG/ML (0.00-0.045)
[2017-06-24 09:37] LABS: Eosinophils 11 % (0-10); Hypochromasia 1+; Lymphocytes 23 % (20-55); Ovalocytes Slight; Platelet Estimate Adequate; Segmented Neutrophils 60 % (50-85); Total Cells Counted 100
[2017-06-24] MEDS ORDERED: ONDANSETRON 4 MG/2 ML VIAL IV PRN (10:50)
[2017-06-24] MEDS ORDERED: MORPHINE 2 MG/1 ML SYRINGE IV PRN (10:50)
[2017-06-24] MEDS ORDERED: DEXTROSE 50% 25 GM/50 ML VIAL IV PRN ×2 (15:59→16:00)
[2017-06-24] MEDS ORDERED: GLUCAGON 1 MG VIAL IM PRN ×2 (15:59→16:00)
[2017-06-24] MEDS ORDERED: IPRATROPIUM 500 MCG/2.5 ML NEB RESP TX PRN (15:59)
[2017-06-24] MEDS: INSULIN LISPRO 100 UNIT/ML SUBCUT SCH ×2 (16:23→21:02)
[2017-06-24] MEDS ORDERED: SODIUM BICARBONATE 650 MG TABLET PO SCH (21:00)
[2017-06-24] MEDS: CARVEDILOL 25 MG TABLET PO SCH (21:01)
[2017-06-24] MEDS: MYCOPHENOLATE 180 MG TABLET PO SCH (21:02)
[2017-06-24] MEDS: hydrALAZINE 25 MG TABLET PO SCH (21:02)
[2017-06-25] MEDS ORDERED: FUROSEMIDE 40 MG/4 ML VIAL IV ONE (04:00)
[2017-06-25 06:45] LABS: Basophils % 0.2 % (0.0-0.8); Eosinophils # 0.3 10*3/uL (0.0-0.87); Eosinophils % 5.8 % (0.00-10.9); Hematocrit 24.8 VOL% (35.7-47.0); Hemoglobin 7.6 GM/DL (12.0-16.0); Immature Granulocytes % 0.7 %; Immature Granulocytes Absolute 0.04 #; Lymphocytes # 0.9 10*3/uL (1.4-4.0); Lymphocytes % 17.5 % (21.3-54.2); Mean Corpuscular HGB Conc 30.6 GM/DL (32-36); Mean Corpuscular Hemoglobin 25 PG (27-34); Mean Corpuscular Volume 80.5 FL (87-102); Mean Platelet Volume 8.9 FL (9.6-12.0); Monocytes # 0.3 10*3/uL (0.11-0.8); Monocytes % 5.9 % (1.7-12.7); NRBC # 0.03 10*3/uL; Neutrophils # 3.8 10*3/uL (1.4-7.4); Neutrophils % 69.9 % (38.7-73.9); Platelet Count 185 T/CUMM (130-400); Red Blood Count 3.08 MC/CUMM (3.8-5.5); Red Cell Distribution Width 20.3 % (9.3-17.3); White Blood Count 5.4 T/CUMM (4-12)
[2017-06-25 07:15] LABS: Albumin 2.8 G/DL (3.4-5.0); Bilirubin,Total 0.8 MG/DL (0.2-1.0); Calcium 8.5 MG/DL (8.5-10.1); Osmolality,Calculated 288.3 MOS/KG (273-304); Total Protein 8.4 G/DL (6.4-8.3)
[2017-06-25] MEDS: INSULIN LISPRO 100 UNIT/ML SUBCUT SCH ×4 (08:28→22:02)
[2017-06-25] MEDS: CARVEDILOL 25 MG TABLET PO SCH ×2 (09:34→17:33)
[2017-06-25] MEDS: PANTOPRAZOLE 40 MG TABLET PO SCH (09:34)
[2017-06-25] MEDS: amLODIPine 10 MG TABLET PO SCH (09:34)
[2017-06-25] MEDS: CALCIUM (CARBONATE)/VITAMIN D 600 MG-400 UNIT TABLET PO SCH (09:34)
[2017-06-25] MEDS: hydrALAZINE 25 MG TABLET PO SCH ×3 (09:34→22:04)
[2017-06-25] MEDS: MYCOPHENOLATE 180 MG TABLET PO SCH ×2 (09:34→22:04)
[2017-06-26 06:39] LABS: Basophils % 0.6 % (0.0-0.8); Eosinophils # 0.2 10*3/uL (0.0-0.87); Eosinophils % 3.9 % (0.00-10.9); Hematocrit 24.6 VOL% (35.7-47.0); Hemoglobin 7.4 GM/DL (12.0-16.0); Immature Granulocytes % 0.4 %; Immature Granulocytes Absolute 0.02 #; Lymphocytes # 1.1 10*3/uL (1.4-4.0); Lymphocytes % 20.8 % (21.3-54.2); Mean Corpuscular HGB Conc 30.1 GM/DL (32-36); Mean Corpuscular Hemoglobin 25 PG (27-34); Mean Corpuscular Volume 81.5 FL (87-102); Mean Platelet Volume 8.8 FL (9.6-12.0); Monocytes # 0.5 10*3/uL (0.11-0.8); Monocytes % 9.6 % (1.7-12.7); NRBC # 0.02 10*3/uL; Neutrophils # 3.5 10*3/uL (1.4-7.4); Neutrophils % 64.7 % (38.7-73.9); Platelet Count 156 T/CUMM (130-400); Red Blood Count 3.02 MC/CUMM (3.8-5.5); Red Cell Distribution Width 20.7 % (9.3-17.3); White Blood Count 5.4 T/CUMM (4-12)
[2017-06-26 07:00] LABS: Eosinophils 4 % (0-10); Giant Platelets Few; Hypochromasia 1+; Lymphocytes 19 % (20-55); Ovalocytes Slight; Platelet Estimate Normal; Segmented Neutrophils 74 % (50-85); Total Cells Counted 100
[2017-06-26 07:05] LABS: Calcium 9.3 MG/DL (8.5-10.1); Osmolality,Calculated 282.5 MOS/KG (273-304); Potassium 3.8 MMOL/L (3.5-5.1)
[2017-06-26] MEDS: INSULIN LISPRO 100 UNIT/ML SUBCUT SCH ×2 (07:56→11:52)
[2017-06-26] MEDS: amLODIPine 10 MG TABLET PO SCH (08:53)
[2017-06-26] MEDS: hydrALAZINE 25 MG TABLET PO SCH (08:53)
[2017-06-26] MEDS: CALCIUM (CARBONATE)/VITAMIN D 600 MG-400 UNIT TABLET PO SCH (08:53)
[2017-06-26] MEDS: MYCOPHENOLATE 180 MG TABLET PO SCH (08:53)
[2017-06-26] MEDS: PANTOPRAZOLE 40 MG TABLET PO SCH (08:53)
[2017-06-26] MEDS: CARVEDILOL 25 MG TABLET PO SCH (08:53)
[2017-06-26 11:45] VITALS: BP 132/73
== END 2017-06-26 14:31 | disposition home or self-care (01) | DRG 291 ==
LOC: EDUNIT# → EDBD → N.ED 06:50 → SUATTDRO 10:03 → N.EDINP 10:03 → N.5E 11:14
PROVIDERS: ADMIT Internal Medicine; ATTEND Internal Medicine

== ENCOUNTER 2021-02-08 08:59 | Inpatient (IN) ==
[2021-02-08 09:36] LABS: ABG Base Excess -0.1 MMOL/L (-2.5-2.5); ABG HCO3 24.3 MMOL/L (20-26); ABG Oxygen Saturation 96.4 % (95-100); ABG PCO2 37.8 MM HG (35-48); ABG PH 7.415 (7.35-7.45); ABG PO2 84.7 MM HG (80-95); ABG TCO2 22.1 MMOL/L (23-27)
[2021-02-08] MEDS ORDERED: AZITHROMYCIN INJ 500 MG in SODIUM CHLORIDE 0.9% 250 ML IV STA (10:48)
[2021-02-08 10:55] LABS: Alanine Aminotransferase 18 U/L (13-56); Albumin 3.3 G/DL (3.4-5.0); Alkaline Phosphatase 133 U/L (45-117); Aspartate Amino Transferase 21 U/L (0-37); Blood Urea Nitrogen 45 MG/DL (7-18); Carbon Dioxide 24 MMOL/L (21-32); Estimated Glom Filtration Rate 3 ML/MIN; Ferritin 1415.7 ng/mL (8-252); Glucose 71 MG/DL (74-106); Osmolality,Calculated 279.1 MOS/KG (273-304); Potassium 4.3 MMOL/L (3.5-5.1); Sodium 135 MMOL/L (136-145); Total Protein 7.2 G/DL (6.4-8.2)
[2021-02-08 11:28] LABS: Basophils % 0.3 % (0.0-0.8); Eosinophils % 0.6 % (0.00-10.9); Hematocrit 30.9 VOL% (35.7-47.0); Hemoglobin 10.2 GM/DL (12.0-16.0); Immature Granulocytes % 0.4 %; Immature Granulocytes Absolute 0.03 #; Lymphocytes % 15.1 % (21.3-54.2); Mean Corpuscular Volume 83.7 FL (87-102); Mean Platelet Volume 9.6 FL (9.6-12.0); Monocytes % 6.3 % (1.7-12.7); Neutrophils % 77.3 % (38.7-73.9); Platelet Count 145 T/CUMM (130-400); Red Blood Count 3.69 MC/CUMM (3.8-5.5); Red Cell Distribution Width 15.7 % (9.3-17.3); White Blood Count 6.7 T/CUMM (4-12)
[2021-02-08 11:37] LABS: PT Patient Result 11.4 SECS (10.5-12.0)
[2021-02-08] MEDS ORDERED: DEXTROSE 50% 25 GM/50 ML VIAL IV PRN (15:07)
[2021-02-08] MEDS ORDERED: GLUCAGON 1 MG VIAL IM PRN (15:07)
[2021-02-08] MEDS ORDERED: guaiFENesin/DM ER 600-30 MG TABLET PO PRN (15:07)
[2021-02-08] MEDS ORDERED: ONDANSETRON 4 MG/2 ML VIAL IV PRN (15:07)
[2021-02-08] MEDS ORDERED: MELATONIN 3 MG TABLET PO PRN (15:19)
[2021-02-08 19:06] LABS: Hepatitis B Core IgM Quant < 0.05 Index; Hepatitis B Surface Ag Quant < 0.10 Index; Hepatitis B Surface Ag Result Non-Reactive (NonReactive); Hepatitis C Virus Ab Quant 0.07 Index; Hepatitis C Virus Ab Result Non-Reactive (NonReactive)
[2021-02-08] MEDS ORDERED: ACETAMINOPHEN 325 MG TABLET PO PRN (19:28)
[2021-02-08] MEDS: ASCORBIC ACID 500 MG TABLET PO SCH (21:50)
[2021-02-08] MEDS: ENOXAPARIN 30 MG/0.3 ML SYRINGE SUBCUT SCH (21:50)
[2021-02-09 05:27] LABS: Basophils % 0.2 % (0.0-0.8); Eosinophils # 0.1 10*3/uL (0.0-0.87); Eosinophils % 1.3 % (0.00-10.9); Hemoglobin 9.2 GM/DL (12.0-16.0); Immature Granulocytes % 0.6 %; Immature Granulocytes Absolute 0.03 #; Lymphocytes # 0.8 10*3/uL (1.4-4.0); Mean Corpuscular HGB Conc 32.9 GM/DL (32-36); Mean Corpuscular Volume 83.8 FL (87-102); Monocytes % 9.9 % (1.7-12.7); Platelet Count 128 T/CUMM (130-400); Red Blood Count 3.34 MC/CUMM (3.8-5.5); Red Cell Distribution Width 15.5 % (9.3-17.3); White Blood Count 4.8 T/CUMM (4-12)
[2021-02-09 05:40] LABS: INR 1.1; PT Patient Result 12.4 SECS (10.5-12.0)
[2021-02-09 06:02] LABS: Albumin 2.9 G/DL (3.4-5.0); Bilirubin,Total 0.5 MG/DL (0.20-1.00); Calcium 8.2 MG/DL (8.5-10.1); Osmolality,Calculated 278.8 MOS/KG (273-304); Potassium 3.5 MMOL/L (3.5-5.1); Risk Ratio 1.25; Total Protein 6.8 G/DL (6.4-8.2)
[2021-02-09 06:08] LABS: Ferritin 1290.7 ng/mL (8-252)
[2021-02-09] MEDS: ASCORBIC ACID 500 MG TABLET PO SCH ×2 (08:41→20:22)
[2021-02-09] MEDS: AZITHROMYCIN 250 MG TABLET PO SCH (08:42)
[2021-02-09] MEDS: CHOLECALCIFEROL 1,000 UNIT TABLET PO SCH (08:42)
[2021-02-09] MEDS: PANTOPRAZOLE 40 MG TABLET PO SCH (08:42)
[2021-02-09] MEDS: ENOXAPARIN 30 MG/0.3 ML SYRINGE SUBCUT SCH (08:42)
[2021-02-09] MEDS: ZINC GLUCONATE 50 MG TABLET PO SCH (08:42)
[2021-02-09] MEDS: DEXAMETHASONE 4 MG/1 ML VIAL IV SCH (08:43)
[2021-02-09] MEDS ORDERED: DEXTROSE 50% 25 GM/50 ML VIAL IV PRN (16:24)
[2021-02-09] MEDS ORDERED: GLUCAGON 1 MG VIAL IM PRN (16:24)
[2021-02-09] MEDS: HEPARIN 5,000 UNIT/1 ML VIAL SUBCUT SCH (16:31)
[2021-02-10] MEDS: HEPARIN 5,000 UNIT/1 ML VIAL SUBCUT SCH ×2 (00:11→08:20)
[2021-02-10] MEDS: ZINC GLUCONATE 50 MG TABLET PO SCH (08:17)
[2021-02-10] MEDS: PANTOPRAZOLE 40 MG TABLET PO SCH (08:17)
[2021-02-10] MEDS: DEXAMETHASONE 4 MG/1 ML VIAL IV SCH (08:17)
[2021-02-10] MEDS: AZITHROMYCIN 250 MG TABLET PO SCH (08:18)
[2021-02-10] MEDS: ASCORBIC ACID 500 MG TABLET PO SCH (08:18)
[2021-02-10] MEDS: CHOLECALCIFEROL 1,000 UNIT TABLET PO SCH (08:18)
[2021-02-10 09:11] VITALS: BP 178/98
[2021-02-10 09:31] LABS: Basophils % 0.2 % (0.0-0.8); Eosinophils % 0.2 % (0.00-10.9); Hematocrit 27.3 VOL% (35.7-47.0); Immature Granulocytes % 0.5 %; Immature Granulocytes Absolute 0.02 #; Lymphocytes # 0.8 10*3/uL (1.4-4.0); Lymphocytes % 20.3 % (21.3-54.2); Mean Corpuscular Volume 83.2 FL (87-102); Mean Platelet Volume 10.6 FL (9.6-12.0); Monocytes % 7.7 % (1.7-12.7); Neutrophils % 71.1 % (38.7-73.9); Platelet Count 122 T/CUMM (130-400); Red Blood Count 3.28 MC/CUMM (3.8-5.5); Red Cell Distribution Width 15.4 % (9.3-17.3); White Blood Count 4.1 T/CUMM (4-12)
[2021-02-10 09:50] LABS: Calcium 8.4 MG/DL (8.5-10.1); Osmolality,Calculated 286.1 MOS/KG (273-304); Potassium 3.7 MMOL/L (3.5-5.1)
== END 2021-02-10 13:50 | disposition home or self-care (01) | DRG 177 ==
LOC: EDBD → EDUNIT# → N.ED 08:59 → N.EDINP 15:08 → SUATTDRO 15:08 → N.2E 16:18
PROVIDERS: ATTEND Internal Medicine